=== PATIENT | female | born 1975 | race Caucasian/White ===

== ENCOUNTER 2018-08-20 10:15 | Emergency (ER) | payer OTHER ==
[~2018-08-20 10:15] MED LIST: Iopamidol 370 76% 200 ML VIAL ONE; Sodium Chloride 0.9% 100 ML BAG ONE
[2018-08-20] MEDS ORDERED: Morphine 4 MG/ML VIAL ONE ×2 (11:17→13:32)
[2018-08-20] MEDS ORDERED: Ondansetron PF 4 MG/2 ML Vial ONE (11:18)
[2018-08-20] MEDS ORDERED: Sodium Chloride 0.9% 500 ML ONE (11:18)
[2018-08-20] MEDS ORDERED: Aspirin Chewable 81 MG TAB ONE (11:18)
[2018-08-20] MEDS ORDERED: Promethazine HCl 25 MG/ML VIAL ONE ×2 (11:20→12:17)
--- NOTE | 2018-08-20 12:02 | RAD ---
SINGLE VIEW OF THE CHEST: COMPARISON: 03/28/2018. HISTORY: Chest pain. FINDINGS: A single view of the chest shows a normal-size cardiomediastinal silhouette. The MediPort is unchang ed in position. There is no evidence of consolidation, mass, or pleural effusion. IMPRESSION: No evidence of acute cardiopulmonary disease. POS: DEEH
--- NOTE | 2018-08-20 12:06 | CT ---
EXAM: CTA of the chest HISTORY: Dyspnea for the last few days. History of blood clots COMPARISON: 03/28/2018 TECHNIQUE: Multiple contiguous axial images were obtained a CTA of the chest with contrast per pulmon ravinder embolism protocol. 3-D oblique MIP reformats and direct coronal reformats were performed. FINDINGS: HEART: Normal in size without focal cardiac abnormality. PULMONARY ARTERIES: Normal in caliber without filling defects to suggest pulmonary emboli. MEDIASTINUM: No hilar or mediastinal lymphadenopathy. LUNGS: No focal infiltrates or masses. PLEURAL SPACE: No pleural effusion or pneumothorax. CHEST WALL SOFT TISSUES: There is a right-sided Mediport with its tip in the superior vena cava. VISUALIZED OSSEOUS STRUCTURES: Unremarkable VISUALIZED SUBDIAPHRAGMATIC STRUCTURES: Unremarkable IMPRESSION: No evidence of pulmonary thromboembolism
[2018-08-20 12:07] LABS: #Eosinphils 0.1 thou/uL (0.0-0.7); #Lymphocytes 1.4 thou/uL (1.20-3.40); #Monocytes 0.3 thou/uL (0.11-0.59); #Neutrophils 3.3 thou/uL (1.40-6.50); %Basophils 0.8 % (0.0-1.0); %Eosinophils 1.7 % (0.0-10.0); %Monocytes 5.9 % (0.0-10.0); %Neutrophils 63.5 % (42.0-75.0); Hemoglobin 10.5 g/dL (12.0-16.0); Mean Corpuscular HGB CONC 30.7 g/dL (32.0-36.0); Mean Corpuscular Hemoglobin 28.3 pg (27.0-31.0); Mean Corpuscular Volume 92.2 fL (78.0-98.0); Mean Platelet Volume 7.7 fL (7.4-10.4); Platelet Count 205 thou/uL (130-400); Red Blood Cell (RBC) Count 3.72 mill/uL (4.20-5.40); White Blood Cell (WBC) Count 5.1 thou/uL (4.8-10.8)
[2018-08-20 12:21] LABS: ALT (SGPT) 16 U/L (8-55); AST (SGOT) 11 U/L (5-34); Albumin 3.8 g/dL (3.5-5.0); Alkaline Phosphatase 115 U/L (40-150); Anion Gap 11 mmol/L (10-20); BUN (Urea Nitrogen) 7 mg/dL (7.0-18.7); Bilirubin, Total 0.3 mg/dL (0.2-1.2); CK (CPK) 95 U/L (29-168); Calc. Creatinine Clearance 0 mL/min (70-130); Calcium 8.3 mg/dL (7.8-10.44); Carbon Dioxide 19 mmol/L (22-29); Chloride 112 mmol/L (98-107); Estimated GFR-MDRD 68; Globulin 2.8 g/dL (2.4-3.5); Glucose 88 mg/dL (70-105); Lipase 9 U/L (8-78); Potassium 3.5 mmol/L (3.5-5.1); Protein, Total 6.6 g/dL (6.0-8.3); Sodium 138 mmol/L (136-145)
[2018-08-20] MEDS ORDERED: Lorazepam 2 MG/ML VIAL ONE (12:41)
[2018-08-20] MEDS ORDERED: Sodium Chloride 0.9% 1,000 ML ONE (12:46)
[2018-08-20] MEDS ORDERED: Ondansetron ODT 4 MG TAB ONE (14:19)
== END 2018-08-20 16:35 | disposition home or self-care (01) ==
LOC: MADERS 10:15
DX: I10 Essential (primary) hypertension (principal); R11.2 Nausea with vomiting, unspecified; I25.2 Old myocardial infarction; J45.909 Unspecified asthma, uncomplicated; Z79.891 Long term (current) use of opiate analgesic; Z79.01 Long term (current) use of anticoagulants; Z79.899 Other long term (current) drug therapy; Z86.711 Personal history of pulmonary embolism
CPT/HCPCS: 71045; 71275; 80053; 82550; 83690; 83880; 84484; 85025; 85379; 93005; 94760; 96361; 96374; 96375; 96376; J1642; J2060; J2270; J2405; J2550; J3490; J7050; Q0162

== ENCOUNTER 2018-09-03 11:55 | Emergency (ER) | payer OTHER ==
[~2018-09-03 11:55] MED LIST changes: -Iopamidol 370 76% 200 ML VIAL ONE; +Sodium Chloride 0.9% 1,000 ML BAG ONE; -Sodium Chloride 0.9% 100 ML BAG ONE
[2018-09-03] MEDS ORDERED: Sodium Chloride 0.9% 1,000 ML ONE (12:20)
[2018-09-03] MEDS ORDERED: Ondansetron PF 4 MG/2 ML Vial ONE (12:20)
[2018-09-03] MEDS ORDERED: Pantoprazole 40 MG VIAL ONE (12:20)
[2018-09-03] MEDS ORDERED: Morphine 4 MG/ML VIAL ONE ×2 (12:20→16:49)
[2018-09-03 14:54] LABS: #Lymphocytes 0.7 thou/uL (1.20-3.40); #Monocytes 0.6 thou/uL (0.11-0.59); #Neutrophils 10.1 thou/uL (1.40-6.50); %Basophils 0.4 % (0.0-1.0); %Eosinophils 0.1 % (0.0-10.0); %Lymphocytes 5.7 % (21.0-51.0); %Monocytes 5.5 % (0.0-10.0); %Neutrophils 88.3 % (42.0-75.0); Hemoglobin 13.1 g/dL (12.0-16.0); Mean Corpuscular HGB CONC 30.1 g/dL (32.0-36.0); Mean Corpuscular Hemoglobin 27.5 pg (27.0-31.0); Mean Corpuscular Volume 91.5 fL (78.0-98.0); Mean Platelet Volume 7.3 fL (7.4-10.4); Platelet Count 264 thou/uL (130-400); RBC Distribution Width 14.4 % (11.5-14.5); Red Blood Cell (RBC) Count 4.75 mill/uL (4.20-5.40); White Blood Cell (WBC) Count 11.4 thou/uL (4.8-10.8)
[2018-09-03 14:58] LABS: Chloride 114 mmol/L (98-107); Potassium 3.7 mmol/L (3.5-5.1); Sodium 142 mmol/L (136-145)
[2018-09-03] MEDS ORDERED: Promethazine HCl 25 MG/ML VIAL ONE (15:15)
[2018-09-03 15:20] LABS: BUN (Urea Nitrogen) 12 mg/dL (7.0-18.7); Calc. Creatinine Clearance 0 mL/min (70-130); Calcium 9.2 mg/dL (7.8-10.44); Estimated GFR-MDRD 68; Glucose 121 mg/dL (70-105)
[2018-09-03 15:46] LABS: Bilirubin Small (Negative); Blood, Urine Negative (Negative); Clarity Clear (Clear); Glucose, Urine (Dipstick) Negative (Negative); Leukocyte Negative (Negative); Nitrite Negative (Negative); Protein, Urine (Dipstick) Negative (Neg-Trace); Specific Gravity, Urine 1.025 (1.005-1.030); Urobilinogen 0.2 mg/dL (0.2-1.0); pH, Urine 5.5 (5.0-9.0)
[2018-09-03 15:46] LABS: Carbon Dioxide 13 mmol/L (22-29)
--- NOTE | 2018-09-03 16:41 | CT ---
CT abdomen pelvis. history: Nausea and vomiting. Noncontrast enhanced CT images of the abdomen and pelvis obtained. The lung bases are unremarkable. No evidence of free intraperitoneal air seen. The liver and spleen are unremarkable. The gallbladder is been surgically removed. The pancreas is unremarkable. Adrenal glands and kidneys are unremarkable. No evidence of periaortic lymphadenopathy seen. No dilated loops of small bowel seen. There is diffuse colonic thickening compatible with colitis. Impression: abnormal colonic thickening concerning for colitis.
[2018-09-03] MEDS ORDERED: Ketorolac Tromethamine 30 MG/ML VIAL ONE (16:49)
[2018-09-03 16:55] LABS: ALT (SGPT) 13 U/L (8-55); Albumin 4.3 g/dL (3.5-5.0); Alkaline Phosphatase 141 U/L (40-150); Bilirubin, Total 0.3 mg/dL (0.2-1.2); Globulin 3.2 g/dL (2.4-3.5); Protein, Total 7.5 g/dL (6.0-8.3)
[2018-09-03 17:10] LABS: Anion Gap 19 mmol/L (10-20)
[2018-09-03] MEDS ORDERED: Levofloxacin 500 mg/D5W 100 ml Premix Bag ONE (17:35)
[2018-09-03] MEDS ORDERED: metroNIDAZOLE 500 MG/100 ML BAG ONE (17:35)
== END 2018-09-03 19:40 | disposition short-term general hospital (02) ==
LOC: MADERS 11:55
DX: K52.9 Noninfective gastroenteritis and colitis, unspecified (principal); I25.2 Old myocardial infarction; Z86.711 Personal history of pulmonary embolism; J45.909 Unspecified asthma, uncomplicated; Z79.891 Long term (current) use of opiate analgesic; Z79.899 Other long term (current) drug therapy
CPT/HCPCS: 74176; 80053; 81003; 82274; 83605; 85025; 93005; 96361; 96365; 96367; 96375; 96376; C9113; J1642; J1885; J1956; J2270; J2405; J2550; J7050

== ENCOUNTER 2018-12-21 10:56 | Emergency (ER) | payer OTHER ==
[2018-12-21] MEDS ORDERED: Sodium Chloride 0.9% 1,000 ML ONE ×2 (11:21→14:12)
--- NOTE | 2018-12-21 11:34 | RAD ---
EXAM: Portable chest PROVIDED CLINICAL HISTORY: Chest pain COMPARISON: 08/20/2018 FINDINGS: Cardiac and mediastinal silhouette is within normal limits. No focal consolidation, pleural fluid or pneumothorax evident. Right IJ implanted port is noted, tip of which projects in expected location of cavoatrial junction. IMPRESSION: No evidence for an acute cardiopulmonary process.
[2018-12-21] MEDS ORDERED: Ondansetron PF 4 MG/2 ML Vial ONE (11:42)
[2018-12-21] MEDS ORDERED: diphenhydrAMINE 50 MG/ML VIAL ONE (11:48)
[2018-12-21] MEDS ORDERED: Morphine 10 MG/ML VIAL ONE (11:48)
[2018-12-21 11:54] LABS: #Basophils 0.1 thou/uL (0.0-0.2); #Monocytes 0.8 thou/uL (0.11-0.59); #Neutrophils 12.2 thou/uL (1.40-6.50); %Basophils 0.9 % (0.0-1.0); %Eosinophils 0.2 % (0.0-10.0); %Lymphocytes 7.1 % (21.0-51.0); %Monocytes 5.5 % (0.0-10.0); %Neutrophils 86.4 % (42.0-75.0); Hemoglobin 11.3 g/dL (12.0-16.0); Mean Corpuscular HGB CONC 31.1 g/dL (32.0-36.0); Mean Corpuscular Hemoglobin 26.3 pg (27.0-31.0); Mean Corpuscular Volume 84.6 fL (78.0-98.0); Mean Platelet Volume 7.6 fL (7.4-10.4); Platelet Count 317 thou/uL (130-400); RBC Distribution Width 16.5 % (11.5-14.5); Red Blood Cell (RBC) Count 4.32 mill/uL (4.20-5.40); White Blood Cell (WBC) Count 14.1 thou/uL (4.8-10.8)
[2018-12-21 12:10] LABS: ALT (SGPT) 13 U/L (8-55); AST (SGOT) 12 U/L (5-34); Albumin 4.3 g/dL (3.5-5.0); Alkaline Phosphatase 131 U/L (40-110); Anion Gap 19 mmol/L (10-20); BUN (Urea Nitrogen) 12 mg/dL (7.0-18.7); Bilirubin, Total 0.3 mg/dL (0.2-1.2); Calc. Creatinine Clearance 0 mL/min (70-130); Calcium 9.2 mg/dL (7.8-10.44); Carbon Dioxide 15 mmol/L (22-29); Chloride 113 mmol/L (98-107); Estimated GFR-MDRD 57; Globulin 3.3 g/dL (2.4-3.5); Glucose 138 mg/dL (70-105); Lipase 15 U/L (8-78); Potassium 3.5 mmol/L (3.5-5.1); Protein, Total 7.6 g/dL (6.0-8.3); Sodium 143 mmol/L (136-145)
[2018-12-21 12:54] LABS: Bilirubin Small (Negative); Blood, Urine Negative (Negative); Clarity Clear (Clear); Glucose, Urine (Dipstick) Negative (Negative); Leukocyte Small (Negative); Nitrite Negative (Negative); Protein, Urine (Dipstick) 30 mg/dL (Neg-Trace); RBC/HPF 0-3 HPF (0-3); Urobilinogen 0.2 mg/dL (Less than 2)
[2018-12-21 12:55] LABS: Bacteria/HPF 1+ HPF (None Seen)
[2018-12-21 13:28] LABS: Phencyclidine (PCP) Detected (NotDetected)
[2018-12-21 13:29] LABS: Amphetamine Not Detected (NotDetected); Barbiturates Screen Not Detected (NotDetected); Benzodiazepine Screen Detected (NotDetected); Cocaine Metabolite Screen Not Detected (NotDetected); Medtox Control Line Valid? VALID (VALID); Methadone Not Detected (NotDetected); Methamphetamine Not Detected (NotDetected); Opiate Screen Detected (NotDetected); Oxycodone Screen Not Detected (NotDetected); THC/Cannabinoid Screen Not Detected (NotDetected); Tricyclic Screen Not Detected (NotDetected)
[2018-12-21] MEDS ORDERED: Metoprolol Tartrate 5 MG/5 ML VIAL ONE (14:12)
[2018-12-21] MEDS ORDERED: Promethazine HCl 25 MG/ML VIAL ONE (14:12)
[2018-12-21 14:33] LABS: INR-International Normal Ratio 1.1; PTT 23.7 SEC (22.9-36.1)
[2018-12-21 14:34] LABS: D-Dimer Test 0.54 *mcg/mL (0.27-0.43)
[2018-12-21] MEDS ORDERED: Enoxaparin Sodium 80 MG/0.8 ML SYRINGE ONE (14:56)
[2018-12-21 15:00] LABS: Troponin I Less than 0.010 ng/mL (< 0.028)
== END 2018-12-21 15:31 | disposition short-term general hospital (02) ==
LOC: MADERS 10:56
DX: R00.0 Tachycardia, unspecified (principal); R11.2 Nausea with vomiting, unspecified; J45.909 Unspecified asthma, uncomplicated; Z79.899 Other long term (current) drug therapy; Z86.711 Personal history of pulmonary embolism
CPT/HCPCS: 36415; 71045; 80053; 80306; 81003; 81015; 82274; 83690; 83880; 84443; 84484; 85025; 85379; 85610; 85730; 93005; 94760; 96361; 96372; 96374; 96375; J1200; J1650; J2270; J2405; J2550; J7050

== ENCOUNTER 2020-02-05 16:01 | Emergency (ER) | payer OTHER ==
[~2020-02-05 16:01] MED LIST changes: +Iopamidol 370 76% 125 ML VIAL FS ONE; +Sodium Chloride 0.9% 100 ML BAG ONE
--- NOTE | 2020-02-05 17:14 | RAD ---
CHEST ONE VIEW: 02/05/20 COMPARISON: 12/21/18. HISTORY: Dyspnea. FINDINGS: Normal cardiac silhouette. Pulmonary vessels and hilum are normal. Costophrenic angles are clear. No consolidation or mass. No pneumothorax or acute osseous abnormalities. Interval removal of a left carrol ed Mediport catheter. IMPRESSION: No acute cardiopulmonary process. POS: PPP
[2020-02-05] MEDS ORDERED: Ondansetron PF 4 MG/2 ML Vial ONE (19:11)
[2020-02-05] MEDS ORDERED: Lorazepam 2 MG/ML VIAL ONE (19:11)
--- NOTE | 2020-02-05 19:14 | RAD ---
EXAM: Single view of the chest HISTORY: Central venous catheter placement COMPARISON: 02/05/2020 FINDINGS: Single view of the chest shows a normal sized cardiomediastinal silhouette. A new right IJ central venous catheter seen with its tip in the superior vena cava. No pneumothorax is seen. There is no evidence of consolidation, mass, or pleural effusion. No acute osseous abnormality. IMPRESSION: No evidence of acute cardiopulmonary disease
[2020-02-05 19:21] LABS: #Basophils 0.1 thou/uL (0.0-0.2); #Lymphocytes 1.4 thou/uL (1.20-3.40); #Monocytes 0.7 thou/uL (0.11-0.59); #Neutrophils 7.7 thou/uL (1.40-6.50); %Lymphocytes 14.5 % (21.0-51.0); %Neutrophils 77.5 % (42.0-75.0); Hemoglobin 10.5 g/dL (12.0-16.0); Mean Corpuscular HGB CONC 30.4 g/dL (32.0-36.0); Mean Corpuscular Hemoglobin 26.5 pg (27.0-31.0); Mean Platelet Volume 7.7 fL (7.4-10.4); Platelet Count 388 thou/uL (130-400); RBC Distribution Width 16.1 % (11.5-14.5); Red Blood Cell (RBC) Count 3.98 mill/uL (4.20-5.40); White Blood Cell (WBC) Count 9.9 thou/uL (4.8-10.8)
[2020-02-05 19:36] LABS: ALT (SGPT) 17 U/L (8-55); AST (SGOT) 16 U/L (5-34); Alkaline Phosphatase 120 U/L (40-110); Anion Gap 20 mmol/L (10-20); BUN (Urea Nitrogen) 9 mg/dL (7.0-18.7); Bilirubin, Total Less than 0.2 mg/dL (0.2-1.2); Calc. Creatinine Clearance 0 mL/min (70-130); Calcium 8.9 mg/dL (7.8-10.44); Carbon Dioxide 18 mmol/L (22-29); Chloride 110 mmol/L (98-107); Estimated GFR-MDRD 69; Globulin 2.7 g/dL (2.4-3.5); Glucose 117 mg/dL (70-105); Potassium 3.6 mmol/L (3.5-5.1); Protein, Total 6.7 g/dL (6.0-8.3); Sodium 144 mmol/L (136-145)
[2020-02-05] MEDS ORDERED: Morphine 4 MG/ML VIAL ONE ×2 (19:56→21:11)
[2020-02-05] MEDS ORDERED: Promethazine HCl 25 MG/ML VIAL ONE ×2 (21:14→21:50)
[2020-02-05] MEDS ORDERED: Sodium Chloride 0.9% 1,000 ML ONE ×2 (22:00→23:38)
[2020-02-05 23:49] LABS: Bilirubin Negative (Negative); Blood, Urine Negative (Negative); Clarity Clear (Clear); Glucose, Urine (Dipstick) Negative (Negative); Ketone, Urine 15 mg/dL (Negative); Leukocyte Negative (Negative); Nitrite Negative (Negative); Protein, Urine (Dipstick) Negative (Neg-Trace); Specific Gravity, Urine 1.025 (1.005-1.030); Urobilinogen 0.2 mg/dL (Less than 2)
[2020-02-05 23:57] LABS: THC/Cannabinoid Screen Not Detected (NotDetected)
[2020-02-05 23:58] LABS: Amphetamine Not Detected (NotDetected); Barbiturates Screen Not Detected (NotDetected); Benzodiazepine Screen Not Detected (NotDetected); Cocaine Metabolite Screen Not Detected (NotDetected); Methadone Not Detected (NotDetected); Methamphetamine Not Detected (NotDetected); Opiate Screen Detected (NotDetected); Oxycodone Screen Not Detected (NotDetected); Phencyclidine (PCP) Not Detected (NotDetected); Tricyclic Screen Not Detected (NotDetected)
[2020-02-05 23:59] LABS: Medtox Control Line Valid? VALID (VALID)
[2020-02-06] MEDS ORDERED: Promethazine HCl 25 MG/ML VIAL ONE (01:34)
[2020-02-06] MEDS ORDERED: Metoprolol Tartrate 50 MG TAB ONE (01:34)
[2020-02-06] MEDS ORDERED: Morphine 4 MG/ML VIAL ONE (01:34)
--- NOTE | 2020-02-06 08:00 | CT ---
PRELIMINARY REPORT/[facility]/AFTER HOURS PROCEDURE CTA CHEST WITH INTRAVENOUS CONTRAST: CLINICAL HISTORY: Dyspnea. Elevated heart rate. TECHNIQUE: Axial CTA images of the chest with intravenous contrast. Three-dimensional MIP/volume rendered reform ations were performed. CONTRAST: With 120 mL [id number]. COMPARISON: None provided. FINDINGS PULMONARY ARTERIES: There is no intraluminal filling defect suspicious for PE. AORTA: Heart is enlarged. Aorta is ectatic without aneurysm or dissection. There is a small hiatal he rnia. LUNGS: Diffuse interstitial thickening in the lungs. No confluent airspace opacities. PLEURAL SPACES: No pleural effusion. No pneumothorax. HEART AND MEDIASTINUM: No cardiomegaly. No significant pericardial effusion. LYMPH NODES: No lymphadenopathy. BONES: No focal osseous abnormality or acute fracture. CHEST WALL AND UPPER ABDOMEN: Stomach is distended with an air-fluid level. Indeterminate 18 mm low- attenuation focus in right lobe of the liver. No evidence for proximal small bowel distention. IMPRESSION: No evidence for acute pulmonary embolism. Findings suggestive of interstitial pulmonary edema. Distended stomach with air-fluid level suggesting gastroparesis versus recent ingestion. ELECTRONICALLY SIGNED BY: Maureen Dyson MD Feb 06, 2020 1:45:41 AM [employer] This report is intended for review by the ordering physician only, in accordance of law. If you recei ve this report in error, please call [facility] at [phone]. FINAL REPORT I agree with the preliminary report provided. No definite central or segmental pulmonary embolus is evident. There is a small hypodensity within th e posterior right hepatic lobe seen on the prior CT examination, likely reflective of a small hemangi magdy. There is some interstitial prominence, much of which is related to subsegmental volume loss and some respiratory motion artifact. CODE QA POS: ROBBIE
== END 2020-02-06 04:36 | disposition short-term general hospital (02) ==
LOC: MADERS 16:01
DX: R00.0 Tachycardia, unspecified (principal); R11.2 Nausea with vomiting, unspecified; R00.2 Palpitations; R53.1 Weakness; I25.2 Old myocardial infarction; J45.909 Unspecified asthma, uncomplicated; Z79.01 Long term (current) use of anticoagulants; Z86.711 Personal history of pulmonary embolism; Z79.899 Other long term (current) drug therapy
CPT/HCPCS: 36556; 71045; 71275; 80053; 80306; 81003; 83880; 84484; 85025; 93005; 96374; 96375; 96376; J2060; J2270; J2405; J2550; J3490; J7050; Q9967

== ENCOUNTER 2020-05-15 07:23 | Emergency (ER) | payer OTHER ==
[2020-05-15] MEDS ORDERED: Ondansetron PF 4 MG/2 ML Vial ONE (08:08)
[2020-05-15] MEDS ORDERED: Sodium Chloride 0.9% 1,000 ML ONE ×2 (08:08→09:19)
--- NOTE | 2020-05-15 08:21 | RAD ---
XR Chest 1 View Portable HISTORY: Dyspnea COMPARISON: 02/05/2020 FINDINGS: The heart size is normal. There has been interval removal of the right-sided internal jugul ar central venous catheter. The lungs are well expanded without focal areas of consolidation, pneumothorax or pleural effusions. IMPRESSION: No radiographic evidence of acute cardiopulmonary process.
[2020-05-15] MEDS ORDERED: Lorazepam 2 MG/ML VIAL ONE (08:33)
[2020-05-15 08:55] LABS: #Basophils 0.1 thou/uL (0.0-0.2); #Lymphocytes 1.1 thou/uL (1.20-3.40); #Monocytes 0.6 thou/uL (0.11-0.59); #Neutrophils 9.3 thou/uL (1.40-6.50); %Basophils 0.6 % (0.0-1.0); %Eosinophils 0.2 % (0.0-10.0); %Neutrophils 83.2 % (42.0-75.0); Hemoglobin 9.7 g/dL (12.0-16.0); Mean Corpuscular Hemoglobin 24.7 pg (27.0-31.0); Mean Corpuscular Volume 82.3 fL (78.0-98.0); Mean Platelet Volume 7.9 fL (7.4-10.4); Platelet Count 295 thou/uL (130-400); RBC Distribution Width 16.6 % (11.5-14.5); Red Blood Cell (RBC) Count 3.99 mill/uL (4.20-5.40); White Blood Cell (WBC) Count 10.7 thou/uL (4.8-10.8)
[2020-05-15 08:56] LABS: Anisocytosis SLIGHT = 6-15 cells (100X) (0-5/hpf)
[2020-05-15 08:57] LABS: Platelet Morphology Comment Appears Adequate
[2020-05-15 09:03] LABS: ALT (SGPT) 25 U/L (8-55); AST (SGOT) 26 U/L (5-34); Albumin 3.9 g/dL (3.5-5.0); Alkaline Phosphatase 115 U/L (40-110); Anion Gap 18 mmol/L (10-20); BUN (Urea Nitrogen) 19 mg/dL (7.0-18.7); Bilirubin, Total 0.3 mg/dL (0.2-1.2); CK (CPK) 64 U/L (29-168); Calc. Creatinine Clearance 0 mL/min (70-130); Calcium 8.8 mg/dL (7.8-10.44); Carbon Dioxide 20 mmol/L (22-29); Chloride 110 mmol/L (98-107); Glucose 127 mg/dL (70-105); Potassium 3.5 mmol/L (3.5-5.1); Protein, Total 6.9 g/dL (6.0-8.3); Sodium 144 mmol/L (136-145)
[2020-05-15 09:04] LABS: CKMB 0.8 ng/mL (0-6.6)
[2020-05-15] MEDS ORDERED: Aspirin Chewable 81 MG TAB ONE ×2 (09:18→09:20)
[2020-05-15] MEDS ORDERED: Nitroglycerin 0.4 MG TAB 1 EACH ONE (09:18)
[2020-05-15] MEDS ORDERED: Morphine 4 MG/ML VIAL ONE (09:19)
[2020-05-15 11:26] LABS: Lactic Acid 2.1 mmol/L (0.5-2.2)
[2020-05-15] MEDS ORDERED: HYDROmorphone 0.5 MG/0.5 ML SYRINGE ONE (11:56)
[2020-05-15] MEDS ORDERED: Promethazine HCl 25 MG/ML VIAL ONE (11:56)
[2020-05-15] MEDS ORDERED: Sodium Chloride 0.9% 500 ML ONE (11:57)
[2020-05-15] MEDS ORDERED: Iopamidol 370 76% 125 ML VIAL FS ONE (12:22)
--- NOTE | 2020-05-15 13:49 | CT ---
Exam: CT angiogram of the chest HISTORY: Shortness of breath. History of pulmonary emboli. COMPARISON: 02/06/2020 TECHNIQUE: CT angiogram of the chest is performed in the axial plane. Three-dimensional reformatted i mages are submitted for interpretation FINDINGS: Mediastinum: No mass, lymphadenopathy or hematoma. HEART: Normal size. No significant pericardial fluid. Aorta: No aneurysm or dissection Upper solid abdominal viscera: Stable cyst in the right hepatic lobe. Gallbladder is surgically absen t Trachea and central bronchi: Patent Pleural spaces: No effusion Lung parenchyma: Stable scarring and atelectasis involving the left and right lower lobe Pneumothorax: None Osseous structures: No lytic or blastic lesions Pulmonary arteries: Adequate contrast opacification pulmonary arterial system to the level of segment al arteries. No filling defect to suggest pulmonary embolism IMPRESSION: 1. Adequate contrast desiccation pulmonary artery consistent the level of segmental arteries. No fill ing defect to suggest thromboembolism
[2020-05-15 19:17] LABS: Bilirubin Negative (Negative); Blood, Urine Trace (Negative); Clarity Slightly Cloudy (Clear); Glucose, Urine (Dipstick) Negative (Negative); Ketone, Urine Trace mg/dL (Negative); Leukocyte Trace (Negative); Nitrite Positive (Negative); Protein, Urine (Dipstick) Negative (Neg-Trace); Urobilinogen 0.2 mg/dL (Less than 2)
[2020-05-15 19:30] LABS: Cocaine Metabolite Screen Not Detected (NotDetected); Methamphetamine Not Detected (NotDetected); Opiate Screen Detected (NotDetected); Phencyclidine (PCP) Not Detected (NotDetected); THC/Cannabinoid Screen Not Detected (NotDetected)
[2020-05-15 19:31] LABS: Amphetamine Not Detected (NotDetected); Barbiturates Screen Not Detected (NotDetected); Benzodiazepine Screen Detected (NotDetected); Medtox Control Line Valid? VALID (VALID); Methadone Not Detected (NotDetected); Oxycodone Screen Not Detected (NotDetected); Tricyclic Screen Not Detected (NotDetected)
[2020-05-15 19:39] LABS: RBC/HPF 0-3 HPF (0-3)
[2020-05-15 19:40] LABS: Bacteria/HPF 3+ HPF (None Seen)
== END 2020-05-16 00:54 | disposition home or self-care (01) ==
LOC: MADERS 07:23
DX: R00.0 Tachycardia, unspecified (principal); G89.4 Chronic pain syndrome; R11.2 Nausea with vomiting, unspecified; I25.2 Old myocardial infarction; J45.909 Unspecified asthma, uncomplicated; G90.50 Complex regional pain syndrome I, unspecified; Z86.711 Personal history of pulmonary embolism; Z79.01 Long term (current) use of anticoagulants; Z79.899 Other long term (current) drug therapy
CPT/HCPCS: 71045; 71275; 80053; 80306; 81003; 81015; 82550; 82553; 83605; 84484; 85025; 93005; 94760; 96365; 96374; 96375; J1170; J2060; J2270; J2405; J2550; J7030; J7050; Q9967

== ENCOUNTER 2021-11-22 07:54 | Emergency (ER) | payer OTHER ==
[~2021-11-22 07:54] MED LIST changes: -Sodium Chloride 0.9% 1,000 ML BAG ONE
[2021-11-22] MEDS ORDERED: methylPREDNISolone Sod Succ/PF 125 MG/2 ML VIAL ONE (08:45)
[2021-11-22] MEDS ORDERED: Albuterol Sulfate 2.5 mg/3 ml Neb ONE (08:45)
[2021-11-22] MEDS ORDERED: Famotidine/PF 20 mg/2ml Vial ONE (08:45)
[2021-11-22] MEDS ORDERED: Lactated Ringer's 1,000 ML ONE (08:45)
[2021-11-22] MEDS ORDERED: Morphine 4 MG/ML VIAL ONE ×3 (08:48→15:02)
[2021-11-22] MEDS ORDERED: Prochlorperazine 10 MG/2 ML VIAL ONE ×2 (08:49→14:07)
[2021-11-22] MEDS ORDERED: diphenhydrAMINE 50 MG/ML VIAL ONE (09:33)
[2021-11-22 09:39] LABS: #Eosinphils 0.1 thou/uL (0.0-0.7); #Lymphocytes 1.6 thou/uL (1.20-3.40); #Monocytes 0.6 thou/uL (0.11-0.59); #Neutrophils 5.8 thou/uL (1.40-6.50); %Basophils 0.4 % (0.0-1.0); %Eosinophils 0.9 % (0.0-10.0); %Lymphocytes 19.9 % (21.0-51.0); %Monocytes 7.7 % (0.0-10.0); %Neutrophils 71.1 % (42.0-75.0); Hemoglobin 10.6 g/dL (12.0-16.0); INR-International Normal Ratio 0.9; Mean Corpuscular HGB CONC 29.8 g/dL (32.0-36.0); Mean Corpuscular Hemoglobin 28.5 pg (27.0-31.0); Mean Corpuscular Volume 95.4 fL (78.0-98.0); Mean Platelet Volume 9.4 fL (7.4-10.4); Platelet Count 265 thou/uL (130-400); Prothrombin Time 12.2 sec (12.0-14.7); RBC Distribution Width 14.3 % (11.5-14.5); Red Blood Cell (RBC) Count 3.71 mill/uL (4.20-5.40); White Blood Cell (WBC) Count 8.2 thou/uL (4.8-10.8)
[2021-11-22 09:48] LABS: ALT (SGPT) 29 U/L (8-55); AST (SGOT) 17 U/L (5-34); Albumin 3.9 g/dL (3.5-5.0); Alkaline Phosphatase 115 U/L (40-110); Anion Gap 15 mmol/L (10-20); BUN (Urea Nitrogen) 12 mg/dL (7.0-18.7); Bilirubin, Total 0.2 mg/dL (0.2-1.2); Calc. Creatinine Clearance 0 mL/min (70-130); Carbon Dioxide 20 mmol/L (22-29); Chloride 116 mmol/L (98-107); Estimated GFR 61; Globulin 2.5 g/dL (2.4-3.5); Glucose 128 mg/dL (70-105); Lipase 10 U/L (8-78); Magnesium 2.1 mg/dL (1.6-2.6); Potassium 4.3 mmol/L (3.5-5.1); Protein, Total 6.4 g/dL (6.0-8.3); Sodium 147 mmol/L (136-145)
[2021-11-22 09:56] LABS: PTT 22.6 sec (22.9-36.1)
[2021-11-22 09:59] LABS: Anisocytosis SLIGHT = 6-15 cells (100X) (0-5/hpf); Platelet Morphology Comment Appears Adequate
[2021-11-22] MEDS ORDERED: Aspirin Chewable 81 MG TAB ONE (10:53)
[2021-11-22] MEDS ORDERED: Acetaminophen 500 MG TAB ONE (10:53)
[2021-11-22 11:11] LABS: Bilirubin Negative (Negative); Blood, Urine Negative (Negative); Clarity Slightly Cloudy (Clear); Glucose, Urine (Dipstick) Negative (Negative); Ketone, Urine Negative (Negative); Leukocyte Small (Negative); Nitrite Negative (Negative); Protein, Urine (Dipstick) Negative (Neg-Trace); Urobilinogen 0.2 mg/dL (Less than 2); pH, Urine 5.5 (5.0-9.0)
[2021-11-22 11:14] LABS: Pregnancy Test - Urine (BHCG) Negative (Negative); Pregu Control Background? CLEAR/WHITE (CLR/WHITE); Pregu Control Bar Appear? YES (CONTROL BAR)
[2021-11-22 11:18] LABS: Bacteria/HPF 4+ HPF (None Seen); RBC/HPF 0-3 HPF (0-3); Squamous Epithelial 0-3 HPF (0-3); WBC/HPF 21-50 HPF (0-3)
[2021-11-22] MEDS ORDERED: Piperacillin/Tazobactam 4.5 GM VIAL ONE (11:35)
[2021-11-22] MEDS ORDERED: Sodium Chloride 0.9% 100 ML ONE (11:35)
[2021-11-22] MEDS ORDERED: Enoxaparin Sodium 80 MG/0.8 ML SYRINGE ONE (11:36)
[2021-11-22] MEDS ORDERED: levETIRAcetam 500 MG/5 ML VIAL ONE (11:36)
== END 2021-11-22 15:20 | disposition short-term general hospital (02) ==
LOC: MADERS 07:54
DX: U07.1 COVID-19 (principal); N39.0 Urinary tract infection, site not specified; E86.0 Dehydration; I26.99 Other pulmonary embolism without acute cor pulmonale; R11.2 Nausea with vomiting, unspecified; R07.89 Other chest pain; I25.2 Old myocardial infarction; J45.909 Unspecified asthma, uncomplicated; G90.50 Complex regional pain syndrome I, unspecified; Z79.01 Long term (current) use of anticoagulants; Z79.899 Other long term (current) drug therapy
CPT/HCPCS: 71046; 71275; 80053; 81003; 81015; 81025; 83605; 83690; 83735; 83880; 84484; 85025; 85610; 85730; 86140; 87040; 87077; 87086; 87149; 87186; 93005; 94760; 96361; 96365; 96368; 96372; 96375; 96376; J0780; J1200; J1650; J1953; J2270; J2543; J2930; J3490; J7120; J7611; J7620; Q9967; S0028

== ENCOUNTER 2021-12-17 06:04 | Emergency (ER) | payer OTHER ==
[2021-12-17 07:31] LABS: #Basophils 0.1 thou/uL (0.0-0.2); #Eosinphils 0.1 thou/uL (0.0-0.7); #Lymphocytes 1.5 thou/uL (1.20-3.40); #Monocytes 0.4 thou/uL (0.11-0.59); #Neutrophils 4.9 thou/uL (1.40-6.50); %Basophils 0.8 % (0.0-1.0); %Eosinophils 0.9 % (0.0-10.0); %Lymphocytes 22.1 % (21.0-51.0); %Neutrophils 71.3 % (42.0-75.0); Mean Corpuscular HGB CONC 30.2 g/dL (32.0-36.0); Mean Corpuscular Hemoglobin 27.9 pg (27.0-31.0); Mean Corpuscular Volume 92.3 fL (78.0-98.0); Mean Platelet Volume 8.9 fL (7.4-10.4); Platelet Count 261 thou/uL (130-400); RBC Distribution Width 14.9 % (11.5-14.5); Red Blood Cell (RBC) Count 3.94 mill/uL (4.20-5.40); White Blood Cell (WBC) Count 6.9 thou/uL (4.8-10.8)
[2021-12-17] MEDS ORDERED: diphenhydrAMINE 50 MG/ML VIAL ONE ×2 (07:36→10:13)
[2021-12-17] MEDS ORDERED: Prochlorperazine 10 MG/2 ML VIAL ONE ×2 (07:36→15:18)
[2021-12-17 07:46] LABS: ALT (SGPT) 104 U/L (8-55); AST (SGOT) 40 U/L (5-34); Albumin 3.8 g/dL (3.5-5.0); Alkaline Phosphatase 133 U/L (40-110); Anion Gap 15 mmol/L (10-20); BUN (Urea Nitrogen) 10 mg/dL (7.0-18.7); Bilirubin, Total 0.2 mg/dL (0.2-1.2); Calc. Creatinine Clearance 0 mL/min (70-130); Calcium 9.1 mg/dL (7.8-10.44); Carbon Dioxide 21 mmol/L (22-29); Chloride 113 mmol/L (98-107); Estimated GFR 62; Globulin 3.1 g/dL (2.4-3.5); Glucose 144 mg/dL (70-105); Lipase 16 U/L (8-78); Potassium 3.2 mmol/L (3.5-5.1); Protein, Total 6.9 g/dL (6.0-8.3); Sodium 146 mmol/L (136-145)
[2021-12-17] MEDS ORDERED: Ondansetron PF 4 MG/2 ML Vial ONE (08:52)
[2021-12-17] MEDS ORDERED: Morphine 4 MG/ML VIAL ONE ×3 (08:52→15:18)
[2021-12-17] MEDS ORDERED: Sodium Chloride 0.9% 1,000 ML ONE ×2 (08:53)
[2021-12-17] MEDS ORDERED: Potassium Chloride 10 MEQ TAB ONE (09:03)
[2021-12-17] MEDS ORDERED: Sodium Chloride 0.9% 100 ML BAG ONE (09:29)
[2021-12-17] MEDS ORDERED: Iopamidol 370 76% 125 ML VIAL FS ONE (10:06)
[2021-12-17 10:49] LABS: Bilirubin Negative (Negative); Blood, Urine Negative (Negative); Clarity Clear (Clear); Glucose, Urine (Dipstick) Negative (Negative); Ketone, Urine Negative (Negative); Leukocyte Trace (Negative); Nitrite Negative (Negative); Protein, Urine (Dipstick) Negative (Neg-Trace); Urobilinogen 0.2 mg/dL (Less than 2)
[2021-12-17] MEDS ORDERED: Lorazepam 2 MG/ML VIAL ONE ×2 (10:52→14:32)
[2021-12-17 10:57] LABS: Amphetamine Not Detected (NotDetected); Cocaine Metabolite Screen Not Detected (NotDetected); Methamphetamine Not Detected (NotDetected); Opiate Screen Detected (NotDetected); Phencyclidine (PCP) Not Detected (NotDetected); THC/Cannabinoid Screen Not Detected (NotDetected)
[2021-12-17 10:58] LABS: Barbiturates Screen Not Detected (NotDetected); Benzodiazepine Screen Detected (NotDetected); Medtox Control Line Valid? VALID (VALID); Methadone Not Detected (NotDetected); Oxycodone Screen Not Detected (NotDetected); Tricyclic Screen Not Detected (NotDetected)
[2021-12-17 10:59] LABS: Bacteria/HPF None Seen HPF (None Seen); RBC/HPF None Seen HPF (0-3); Squamous Epithelial 0-3 HPF (0-3); WBC/HPF 0-3 HPF (0-3)
[2021-12-17] MEDS ORDERED: Metoprolol Tartrate 5 MG/5 ML VIAL ONE ×2 (12:09→17:38)
[2021-12-17] MEDS ORDERED: Sodium Chloride 0.9% 500 ML ONE (15:18)
[2021-12-17 15:39] LABS: CRP (Inflammatory) Less than 0.50 mg/dL (= or < 0.5); Magnesium 1.7 mg/dL (1.6-2.6)
== END 2021-12-17 18:11 | disposition short-term general hospital (02) ==
LOC: MADERS 06:04
DX: G90.50 Complex regional pain syndrome I, unspecified (principal); R11.2 Nausea with vomiting, unspecified; I25.2 Old myocardial infarction; Z86.711 Personal history of pulmonary embolism; Z79.899 Other long term (current) drug therapy; Z79.01 Long term (current) use of anticoagulants
CPT/HCPCS: 36415; 71046; 71275; 74175; 80053; 80306; 81003; 81015; 83690; 83735; 83880; 84484; 85025; 86140; 93005; 96361; 96365; 96366; 96375; 96376; J0780; J1200; J2060; J2270; J2405; J7030; J7050; J7620; Q9967

== ENCOUNTER 2022-01-20 02:04 | Emergency (ER) | payer OTHER ==
[2022-01-20 03:00] LABS: #Eosinphils 0.1 thou/uL (0.0-0.7); #Lymphocytes 1.2 thou/uL (1.20-3.40); #Monocytes 0.5 thou/uL (0.11-0.59); #Neutrophils 5.5 thou/uL (1.40-6.50); %Basophils 0.6 % (0.0-1.0); %Eosinophils 0.7 % (0.0-10.0); %Lymphocytes 16.2 % (21.0-51.0); %Monocytes 6.9 % (0.0-10.0); %Neutrophils 75.7 % (42.0-75.0); Hemoglobin 12.1 g/dL (12.0-16.0); Mean Corpuscular HGB CONC 31.2 g/dL (32.0-36.0); Mean Corpuscular Hemoglobin 29.4 pg (27.0-31.0); Mean Corpuscular Volume 94.2 fl (78.0-98.0); Platelet Count 315 thou/uL (130-400); RBC Distribution Width 14.8 % (11.5-14.5); Red Blood Cell (RBC) Count 4.12 mill/uL (4.20-5.40); White Blood Cell (WBC) Count 7.3 thou/uL (4.8-10.8)
[2022-01-20] MEDS ORDERED: Sodium Chloride 0.9% 1,000 ML ONE (03:05)
[2022-01-20] MEDS ORDERED: HYDROmorphone 0.5 MG/0.5 ML SYRINGE ONE ×2 (03:06→05:40)
[2022-01-20] MEDS ORDERED: Promethazine HCl 25 MG/ML VIAL ONE (03:06)
[2022-01-20] MEDS ORDERED: Sodium Chloride 0.9% 100 ML ONE ×2 (03:08→05:41)
[2022-01-20 03:21] LABS: ALT (SGPT) 45 U/L (8-55); AST (SGOT) 22 U/L (5-34); Alkaline Phosphatase 122 U/L (40-110); Anion Gap 14 mmol/L (10-20); BUN (Urea Nitrogen) 9 mg/dL (7.0-18.7); Bilirubin, Total 0.2 mg/dL (0.2-1.2); CK (CPK) 37 U/L (29-168); Calc. Creatinine Clearance 0 mL/min (70-130); Calcium 9.3 mg/dL (7.8-10.44); Carbon Dioxide 20 mmol/L (22-29); Chloride 113 mmol/L (98-107); Estimated GFR 59; Globulin 2.9 g/dL (2.4-3.5); Glucose 175 mg/dL (70-105); Lipase 17 U/L (8-78); Protein, Total 6.9 g/dL (6.0-8.3); Sodium 144 mmol/L (136-145)
[2022-01-20 03:47] LABS: Potassium 2.9 mmol/L (3.5-5.1)
[2022-01-20] MEDS ORDERED: Potassium Chloride 20 MEQ TAB ONE (03:54)
[2022-01-20] MEDS ORDERED: NS 0.9% w/ 20 MEQ KCL 1,000 ML ONE (03:55)
[2022-01-20 07:00] LABS: Potassium 3.9 mmol/L (3.5-5.1)
[2022-01-20] MEDS ORDERED: Metoprolol Tartrate 50 MG TAB ONE (07:26)
[2022-01-20] MEDS ORDERED: Ondansetron PF 4 MG/2 ML Vial ONE (08:59)
[2022-01-20] MEDS ORDERED: Lorazepam 2 MG/ML VIAL ONE (09:36)
[2022-01-20 10:54] LABS: Bilirubin Negative (Negative); Blood, Urine Trace (Negative); Clarity Slightly Cloudy (Clear); Glucose, Urine (Dipstick) Negative (Negative); Ketone, Urine Negative (Negative); Leukocyte Trace (Negative); Nitrite Negative (Negative); Protein, Urine (Dipstick) Negative (Neg-Trace); Specific Gravity, Urine 1.025 (1.005-1.030); Urobilinogen 0.2 mg/dL (Less than 2)
[2022-01-20 10:58] LABS: Pregnancy Test - Urine (BHCG) Negative (Negative); Pregu Control Background? CLEAR/WHITE (CLR/WHITE); Pregu Control Bar Appear? YES (CONTROL BAR); Specific Gravity 1.025 (1.002-1.036)
[2022-01-20 11:02] LABS: RBC/HPF 0-3 HPF (0-3)
[2022-01-20 11:03] LABS: Bacteria/HPF 4+ HPF (None Seen); Squamous Epithelial 0-3 HPF (0-3)
[2022-01-20] MEDS ORDERED: Ketorolac Tromethamine 30 MG/ML VIAL ONE (12:00)
[2022-01-20] MEDS ORDERED: Topiramate 25 MG TAB PO SCH ×2 (12:00→13:30)
[2022-01-20] MEDS ORDERED: Topiramate 25 MG TAB ONE (12:00)
[2022-01-20] MEDS ORDERED: Sodium Chloride 0.9% 1,000 ML BAG ONE (12:00)
[2022-01-20 12:50] LABS: SARS-CoV-2 NAA Rapid Test DETECTED (NotDetected)
== END 2022-01-20 14:44 | disposition short-term general hospital (02) ==
LOC: MADERS 02:04 → MADMS 09:12 → UNDOADMOB 09:12 → MADERS 14:44
DX: U07.1 COVID-19 (principal); E86.0 Dehydration; G40.409 Other generalized epilepsy and epileptic syndromes, not intractable, without status epilepticus; E87.6 Hypokalemia; N39.0 Urinary tract infection, site not specified; R11.2 Nausea with vomiting, unspecified; I25.2 Old myocardial infarction; J45.909 Unspecified asthma, uncomplicated; G90.50 Complex regional pain syndrome I, unspecified; Z86.711 Personal history of pulmonary embolism; Z79.01 Long term (current) use of anticoagulants; Z79.899 Other long term (current) drug therapy
CPT/HCPCS: 70450; 71045; 80053; 81003; 81015; 81025; 82550; 83605; 83690; 85025; 93005; 96365; 96366; 96367; 96375; J1170; J1885; J1956; J2060; J2405; J2550; J3480; J7050; U0002

== ENCOUNTER 2022-03-27 10:38 | Emergency (ER) | payer OTHER ==
[2022-03-27] MEDS ORDERED: Morphine 4 MG/ML VIAL ONE ×3 (11:55→19:19)
[2022-03-27] MEDS ORDERED: Lactated Ringer's 1,000 ML ONE ×3 (11:56→17:33)
[2022-03-27] MEDS ORDERED: Dicyclomine 20 MG/2 ML VIAL ONE (11:56)
[2022-03-27] MEDS ORDERED: Orphenadrine Citrate 60 MG/2 ML VIAL ONE (11:56)
[2022-03-27] MEDS ORDERED: Prochlorperazine 10 MG/2 ML VIAL ONE ×2 (11:56→19:19)
[2022-03-27 13:01] LABS: #Monocytes 0.4 thou/uL (0.11-0.59); #Neutrophils 7.7 thou/uL (1.40-6.50); %Basophils 0.5 % (0.0-1.0); %Eosinophils 0.1 % (0.0-10.0); %Lymphocytes 10.6 % (21.0-51.0); %Monocytes 4.4 % (0.0-10.0); %Neutrophils 84.4 % (42.0-75.0); Mean Corpuscular HGB CONC 32.3 g/dL (32.0-36.0); Mean Corpuscular Hemoglobin 30.8 pg (27.0-31.0); Mean Corpuscular Volume 95.3 fl (78.0-98.0); Mean Platelet Volume 7.9 fL (7.4-10.4); Platelet Count 310 10x3/uL (130-400); RBC Distribution Width 15.2 % (11.5-14.5); Red Blood Cell (RBC) Count 4.54 mill/uL (4.20-5.40); White Blood Cell (WBC) Count 9.1 10x3/uL (4.8-10.8)
[2022-03-27 13:24] LABS: ALT (SGPT) 33 U/L (8-55); AST (SGOT) 26 U/L (5-34); Albumin 4.1 g/dL (3.5-5.0); Alkaline Phosphatase 135 U/L (40-110); Anion Gap 18 mmol/L (10-20); BUN (Urea Nitrogen) 11 mg/dL (7.0-18.7); Bilirubin, Total 0.2 mg/dL (0.2-1.2); CK (CPK) 47 U/L (29-168); Calc. Creatinine Clearance 0 mL/min (70-130); Calcium 9.7 mg/dL (7.8-10.44); Carbon Dioxide 19 mmol/L (22-29); Chloride 111 mmol/L (98-107); Estimated GFR 71; Globulin 2.7 g/dL (2.4-3.5); Glucose 153 mg/dL (70-105); Lipase 11 U/L (8-78); Magnesium 1.7 mg/dL (1.6-2.6); Potassium 3.9 mmol/L (3.5-5.1); Protein, Total 6.8 g/dL (6.0-8.3); Sodium 144 mmol/L (136-145)
[2022-03-27] MEDS ORDERED: Metoprolol Tartrate 50 MG TAB ONE (14:47)
[2022-03-27] MEDS ORDERED: Promethazine HCl 25 MG/ML VIAL ONE (15:04)
[2022-03-27] MEDS ORDERED: Sodium Chloride 0.9% 100 ML ONE (15:04)
[2022-03-27] MEDS ORDERED: Metoprolol Tartrate 5 MG/5 ML VIAL ONE ×2 (15:04→20:10)
[2022-03-27 16:34] LABS: Lactic Acid 2.7 mmol/L (0.5-2.2)
[2022-03-27 17:01] LABS: Bilirubin Negative (Negative); Blood, Urine Negative (Negative); Glucose, Urine (Dipstick) 100 mg/dL (Negative); Ketone, Urine Negative (Negative); Leukocyte Negative (Negative); Nitrite Negative (Negative); Protein, Urine (Dipstick) Negative (Neg-Trace); Urobilinogen 0.2 mg/dL (Less than 2); pH, Urine 5.5 (5.0-9.0)
[2022-03-27 17:05] LABS: Clarity Hazy (Clear)
[2022-03-27 17:30] LABS: SARS-CoV-2 NAA Rapid Test Not Detected (NotDetected)
[2022-03-27] MEDS ORDERED: Pantoprazole 40 MG VIAL ONE (17:33)
[2022-03-27] MEDS ORDERED: Lorazepam 2 MG/ML VIAL ONE ×2 (17:33→19:19)
[2022-03-27 20:32] LABS: Amphetamine Not Detected (NotDetected); Barbiturates Screen Not Detected (NotDetected); Benzodiazepine Screen Detected (NotDetected); Cocaine Metabolite Screen Not Detected (NotDetected); Medtox Control Line Valid? VALID (VALID); Methadone Not Detected (NotDetected); Methamphetamine Not Detected (NotDetected); Opiate Screen Detected (NotDetected); Oxycodone Screen Not Detected (NotDetected); Phencyclidine (PCP) Not Detected (NotDetected); THC/Cannabinoid Screen Not Detected (NotDetected); Tricyclic Screen Not Detected (NotDetected)
[2022-03-28] MEDS ORDERED: Prochlorperazine 10 MG/2 ML VIAL ONE (01:50)
[2022-03-28] MEDS ORDERED: Morphine 4 MG/ML VIAL ONE (01:50)
[2022-03-28] MEDS ORDERED: Metoprolol Tartrate 5 MG/5 ML VIAL ONE (04:22)
[2022-03-28 07:06] LABS: #Lymphocytes 1.1 thou/uL (1.20-3.40); #Monocytes 0.9 thou/uL (0.11-0.59); #Neutrophils 7.4 thou/uL (1.40-6.50); %Basophils 0.4 % (0.0-1.0); %Lymphocytes 11.6 % (21.0-51.0); %Monocytes 9.2 % (0.0-10.0); %Neutrophils 78.7 % (42.0-75.0); Hemoglobin 12.4 g/dL (12.0-16.0); Mean Corpuscular HGB CONC 32.2 g/dL (32.0-36.0); Mean Corpuscular Hemoglobin 30.8 pg (27.0-31.0); Mean Corpuscular Volume 95.7 fl (78.0-98.0); Mean Platelet Volume 7.8 fL (7.4-10.4); Platelet Count 299 10x3/uL (130-400); RBC Distribution Width 15.1 % (11.5-14.5); Red Blood Cell (RBC) Count 4.02 mill/uL (4.20-5.40); White Blood Cell (WBC) Count 9.4 10x3/uL (4.8-10.8)
[2022-03-28 07:24] LABS: ALT (SGPT) 24 U/L (8-55); AST (SGOT) 17 U/L (5-34); Albumin 3.7 g/dL (3.5-5.0); Alkaline Phosphatase 116 U/L (40-110); Anion Gap 18 mmol/L (10-20); BUN (Urea Nitrogen) 7 mg/dL (7.0-18.7); Bilirubin, Total 0.3 mg/dL (0.2-1.2); Calc. Creatinine Clearance 0 mL/min (70-130); Calcium 9.4 mg/dL (7.8-10.44); Carbon Dioxide 24 mmol/L (22-29); Chloride 109 mmol/L (98-107); Estimated GFR 92; Globulin 2.7 g/dL (2.4-3.5); Glucose 148 mg/dL (70-105); Magnesium 1.6 mg/dL (1.6-2.6); Potassium 3.7 mmol/L (3.5-5.1); Protein, Total 6.4 g/dL (6.0-8.3); Sodium 147 mmol/L (136-145)
[2022-03-28] MEDS ORDERED: Metoprolol Tartrate 50 MG TAB ONE (08:01)
[2022-03-28] MEDS ORDERED: Rivaroxaban 10 MG TAB PO SCH (08:15)
[2022-03-28] MEDS ORDERED: Gabapentin 300 MG CAP PO SCH (08:15)
[2022-03-28] MEDS ORDERED: Topiramate 25 MG TAB PO SCH (08:15)
[2022-03-28] MEDS ORDERED: HYDROcodone/Acetaminophen 10/325 mg Tablet ONE (10:45)
== END 2022-03-28 17:20 | disposition short-term general hospital (02) ==
LOC: MADERS 10:38
DX: R11.2 Nausea with vomiting, unspecified (principal); R10.9 Unspecified abdominal pain; E87.20 Acidosis, unspecified; R00.0 Tachycardia, unspecified; J45.909 Unspecified asthma, uncomplicated; R07.89 Other chest pain; Z20.822 Contact with and (suspected) exposure to COVID-19; Z79.899 Other long term (current) drug therapy
CPT/HCPCS: 71046; 80053; 80306; 81003; 82550; 83605; 83690; 83735; 84443; 84484; 85025; 85379; 87040; 87804; 93005; 94760; 96361; 96372; 96374; 96375; 96376; C9113; J0780; J2060; J2270; J2360; J2550; J7120; U0002

== ENCOUNTER 2022-06-03 16:59 | Emergency (ER) | payer OTHER ==
[2022-06-03] MEDS ORDERED: Lorazepam 2 MG/ML VIAL ONE (17:00)
[2022-06-03 18:01] LABS: ALT (SGPT) 21 U/L (8-55); AST (SGOT) 18 U/L (5-34); Albumin 3.9 g/dL (3.5-5.0); Alkaline Phosphatase 121 U/L (40-110); Anion Gap 16 mmol/L (10-20); BUN (Urea Nitrogen) 12 mg/dL (7.0-18.7); Bilirubin, Total 0.3 mg/dL (0.2-1.2); Calc. Creatinine Clearance 0 mL/min (70-130); Calcium 9.1 mg/dL (7.8-10.44); Carbon Dioxide 15 mmol/L (22-29); Chloride 116 mmol/L (98-107); Estimated GFR 61; Globulin 3.1 g/dL (2.4-3.5); Glucose 181 mg/dL (70-105); Magnesium 1.8 mg/dL (1.6-2.6); Potassium 3.6 mmol/L (3.5-5.1); Sodium 143 mmol/L (136-145)
[2022-06-03] MEDS ORDERED: Ketorolac Tromethamine 30 MG/ML VIAL ONE (18:13)
[2022-06-03] MEDS ORDERED: Ondansetron PF 4 MG/2 ML Vial ONE (18:33)
[2022-06-03] MEDS ORDERED: Sodium Chloride 0.9% 2,000 ML ONE (18:33)
[2022-06-03] MEDS ORDERED: HYDROcodone/Acetaminophen 5/325 mg Tablet ONE (18:33)
[2022-06-03 18:34] LABS: #Eosinphils 0.1 thou/uL (0.0-0.7); #Lymphocytes 1.5 thou/uL (1.20-3.40); #Monocytes 0.5 thou/uL (0.11-0.59); #Neutrophils 5.1 thou/uL (1.40-6.50); %Basophils 0.5 % (0.0-1.0); %Eosinophils 0.7 % (0.0-10.0); %Lymphocytes 20.9 % (21.0-51.0); %Monocytes 7.2 % (0.0-10.0); %Neutrophils 70.7 % (42.0-75.0); Hemoglobin 11.4 g/dL (12.0-16.0); Mean Corpuscular HGB CONC 32.3 g/dL (32.0-36.0); Mean Corpuscular Hemoglobin 30.5 pg (27.0-31.0); Mean Corpuscular Volume 94.6 fl (78.0-98.0); Mean Platelet Volume 7.8 fL (7.4-10.4); Platelet Count 276 10x3/uL (130-400); RBC Distribution Width 13.8 % (11.5-14.5); Red Blood Cell (RBC) Count 3.73 mill/uL (4.20-5.40); White Blood Cell (WBC) Count 7.2 10x3/uL (4.8-10.8)
[2022-06-03 18:47] LABS: Alcohol Less than 10 mg/dL (Less than 10); Salicylate Less than 8.0 mg/dL (15.0-30.0)
[2022-06-03 18:53] LABS: Pregnancy Test - Urine (BHCG) Negative (Negative); Pregu Control Background? CLEAR/WHITE (CLR/WHITE); Pregu Control Bar Appear? YES (CONTROL BAR); Specific Gravity 1.025 (1.002-1.036)
[2022-06-03 19:09] LABS: Amphetamine Not Detected (NotDetected); Barbiturates Screen Not Detected (NotDetected); Benzodiazepine Screen Detected (NotDetected); Cocaine Metabolite Screen Not Detected (NotDetected); Medtox Control Line Valid? VALID (VALID); Methadone Not Detected (NotDetected); Methamphetamine Not Detected (NotDetected); Opiate Screen Detected (NotDetected); Oxycodone Screen Not Detected (NotDetected); Phencyclidine (PCP) Not Detected (NotDetected); THC/Cannabinoid Screen Not Detected (NotDetected); Tricyclic Screen Not Detected (NotDetected)
== END 2022-06-03 19:18 | disposition home or self-care (01) ==
LOC: MADERS 16:59
DX: R56.9 Unspecified convulsions (principal); E86.0 Dehydration; J45.909 Unspecified asthma, uncomplicated
CPT/HCPCS: 36415; 70450; 80053; 80306; 80307; 81025; 83735; 85025; 93005; 96372; 96374; 96375; J1885; J2060; J2405; J7050

== ENCOUNTER 2022-06-25 10:20 | Emergency (ER) | payer OTHER ==
[2022-06-25 11:38] LABS: #Basophils 0.1 thou/uL (0.0-0.2); #Eosinphils 0.1 thou/uL (0.0-0.7); #Lymphocytes 1.6 thou/uL (1.20-3.40); #Monocytes 0.4 thou/uL (0.11-0.59); #Neutrophils 4.5 thou/uL (1.40-6.50); %Basophils 1.1 % (0.0-1.0); %Lymphocytes 23.8 % (21.0-51.0); %Neutrophils 68.1 % (42.0-75.0); Hemoglobin 12.1 g/dL (12.0-16.0); Mean Corpuscular HGB CONC 32.1 g/dL (32.0-36.0); Mean Corpuscular Hemoglobin 30.9 pg (27.0-31.0); Mean Corpuscular Volume 96.4 fl (78.0-98.0); Mean Platelet Volume 10.3 fL (7.4-10.4); Platelet Count 269 10x3/uL (130-400); RBC Distribution Width 14.6 % (11.5-14.5); Red Blood Cell (RBC) Count 3.91 mill/uL (4.20-5.40); White Blood Cell (WBC) Count 6.6 10x3/uL (4.8-10.8)
[2022-06-25] MEDS ORDERED: Nitroglycerin 0.4 MG TAB 1 EACH ONE (11:47)
[2022-06-25 11:52] LABS: ALT (SGPT) 20 U/L (8-55); AST (SGOT) 21 U/L (5-34); Albumin 3.8 g/dL (3.5-5.0); Alkaline Phosphatase 133 U/L (40-110); Anion Gap 15 mmol/L (10-20); BUN (Urea Nitrogen) 8 mg/dL (7.0-18.7); Bilirubin, Total 0.2 mg/dL (0.2-1.2); Calc. Creatinine Clearance 0 mL/min (70-130); Calcium 9.1 mg/dL (7.8-10.44); Carbon Dioxide 19 mmol/L (22-29); Chloride 115 mmol/L (98-107); Estimated GFR 74; Globulin 2.7 g/dL (2.4-3.5); Glucose 139 mg/dL (70-105); Magnesium 2.1 mg/dL (1.6-2.6); Potassium 3.7 mmol/L (3.5-5.1); Protein, Total 6.5 g/dL (6.0-8.3); Sodium 145 mmol/L (136-145)
[2022-06-25] MEDS ORDERED: cloNIDine 0.1mg/24 Hour PATCH ONE (12:10)
[2022-06-25] MEDS ORDERED: Ondansetron PF 4 MG/2 ML Vial ONE (12:10)
[2022-06-25] MEDS ORDERED: cloNIDine 0.1 MG TAB ONE (12:10)
[2022-06-25] MEDS ORDERED: Diazepam 5 MG TAB ONE (12:43)
[2022-06-25] MEDS ORDERED: Aspirin 325 MG TAB ONE (12:43)
[2022-06-25] MEDS ORDERED: Morphine 4 MG/ML VIAL ONE (13:52)
[2022-06-25 13:59] LABS: Troponin I Less than 0.010 ng/mL (< 0.028)
[2022-06-25] MEDS ORDERED: Metoprolol Tartrate 5 MG/5 ML VIAL ONE (14:18)
[2022-06-25] MEDS ORDERED: Diazepam 10 MG/2 ML SYRINGE ONE (14:32)
[2022-06-25] MEDS ORDERED: Labetalol HCl 100 MG/20 ML VIAL ONE (14:54)
== END 2022-06-25 16:19 | disposition home or self-care (01) ==
LOC: MADERS 10:20
DX: I10 Essential (primary) hypertension (principal); Z79.899 Other long term (current) drug therapy
CPT/HCPCS: 70450; 71045; 80053; 83735; 83880; 84484; 85025; 93005; 96374; 96375; J2270; J2405; J3360

== ENCOUNTER 2022-08-13 14:29 | Emergency (ER) | payer OTHER ==
[2022-08-13] MEDS ORDERED: Morphine 4 MG/ML VIAL ONE ×3 (15:23→20:15)
[2022-08-13] MEDS ORDERED: Promethazine HCl 25 MG/ML VIAL ONE ×3 (15:23→20:15)
[2022-08-13] MEDS ORDERED: Ondansetron PF 4 MG/2 ML Vial ONE (17:23)
[2022-08-13] MEDS ORDERED: Sodium Chloride 0.9% 1,000 ML ONE ×3 (17:25→20:15)
[2022-08-13 17:34] LABS: #Lymphocytes 0.6 thou/uL (1.20-3.40); #Monocytes 0.4 thou/uL (0.11-0.59); #Neutrophils 11.3 thou/uL (1.40-6.50); %Basophils 0.3 % (0.0-1.0); %Monocytes 3.5 % (0.0-10.0); %Neutrophils 91.2 % (42.0-75.0); Mean Corpuscular HGB CONC 31.4 g/dL (32.0-36.0); Mean Corpuscular Volume 95.5 fl (78.0-98.0); Platelet Count 403 10x3/uL (130-400); RBC Distribution Width 15.9 % (11.5-14.5); White Blood Cell (WBC) Count 12.4 10x3/uL (4.8-10.8)
[2022-08-13 17:39] LABS: BHCG - Serum Negative (NEGATIVE); Pregs Control Background? CLEAR/WHITE (CLR/WHITE); Pregs Control Bar Appear? YES (CONTROL BAR)
[2022-08-13 17:47] LABS: ALT (SGPT) 32 U/L (8-55); AST (SGOT) 19 U/L (5-34); Albumin 4.2 g/dL (3.5-5.0); Alkaline Phosphatase 142 U/L (40-110); Anion Gap 17 mmol/L (10-20); BUN (Urea Nitrogen) 20 mg/dL (7.0-18.7); Bilirubin, Total 0.3 mg/dL (0.2-1.2); Calc. Creatinine Clearance 0 mL/min (70-130); Calcium 9.7 mg/dL (7.8-10.44); Carbon Dioxide 23 mmol/L (22-29); Chloride 108 mmol/L (98-107); Estimated GFR 70; Globulin 3.2 g/dL (2.4-3.5); Glucose 179 mg/dL (70-105); Lipase 8 U/L (8-78); Magnesium 2.1 mg/dL (1.6-2.6); Potassium 3.1 mmol/L (3.5-5.1); Protein, Total 7.4 g/dL (6.0-8.3); Sodium 145 mmol/L (136-145)
[2022-08-13] MEDS ORDERED: Labetalol HCl 100 MG/20 ML VIAL ONE (18:50)
== END 2022-08-13 22:03 | disposition short-term general hospital (02) ==
LOC: MADERS 14:29
DX: K52.9 Noninfective gastroenteritis and colitis, unspecified (principal); E87.6 Hypokalemia; R00.0 Tachycardia, unspecified
CPT/HCPCS: 36556; 74176; 80053; 83605; 83690; 83735; 84703; 85025; 93005; 94760; 96361; 96365; 96372; 96375; J2270; J2405; J2550; J7050

== ENCOUNTER 2022-12-23 21:01 | Emergency (ER) | payer OTHER ==
[2022-12-23] MEDS ORDERED: Sodium Chloride 0.9% 1,000 ML ONE ×2 (21:46→23:35)
[2022-12-23 22:14] LABS: #Basophils 0.1 thou/uL (0.0-0.2); #Lymphocytes 1.7 thou/uL (1.20-3.40); #Monocytes 0.8 thou/uL (0.11-0.59); #Neutrophils 9.4 thou/uL (1.40-6.50); %Basophils 0.5 % (0.0-1.0); %Eosinophils 0.1 % (0.0-10.0); %Lymphocytes 14.5 % (21.0-51.0); %Monocytes 6.6 % (0.0-10.0); %Neutrophils 78.3 % (42.0-75.0); Anisocytosis SLIGHT = 6-15 cells (100X) (0-5/hpf); Hematocrit 41.3 % (36.0-47.0); Hemoglobin 12.4 g/dL (12.0-16.0); MDiff Complete? YES; Mean Corpuscular Hemoglobin 28.3 pg (27.0-31.0); Mean Corpuscular Volume 94.2 fl (78.0-98.0); Mean Platelet Volume 10.1 fL (7.4-10.4); Platelet Adequacy Comment Appears Adequate; Platelet Count 286 10x3/uL (130-400); RBC Distribution Width 16.9 % (11.5-14.5); Red Blood Cell (RBC) Count 4.39 mill/uL (4.20-5.40)
[2022-12-23] MEDS ORDERED: Ondansetron PF 4 MG/2 ML Vial ONE (22:19)
[2022-12-23 22:22] LABS: ALT (SGPT) 18 U/L (8-55); AST (SGOT) 14 U/L (5-34); Albumin 4.2 g/dL (3.5-5.0); Alkaline Phosphatase 151 U/L (40-110); Anion Gap 19 mmol/L (10-20); BUN (Urea Nitrogen) 13 mg/dL (7.0-18.7); Bilirubin, Total 0.2 mg/dL (0.2-1.2); Calc. Creatinine Clearance 0 mL/min (70-130); Calcium 9.2 mg/dL (7.8-10.44); Carbon Dioxide 16 mmol/L (22-29); Chloride 112 mmol/L (98-107); Estimated GFR 64; Globulin 2.8 g/dL (2.4-3.5); Glucose 177 mg/dL (70-105); Lipase 8 U/L (8-78); Potassium 3.6 mmol/L (3.5-5.1); Sodium 143 mmol/L (136-145)
[2022-12-23] MEDS ORDERED: Ketorolac Tromethamine 30 MG/ML VIAL ONE (22:26)
[2022-12-23 22:29] LABS: BHCG - Serum Negative (NEGATIVE); Pregs Control Background? CLEAR/WHITE (CLR/WHITE); Pregs Control Bar Appear? YES (CONTROL BAR)
[2022-12-23] MEDS ORDERED: valACYclovir 500 MG TAB PO SCH (23:30)
[2022-12-23] MEDS ORDERED: Morphine 4 MG/ML VIAL ONE (23:34)
[2022-12-24] MEDS ORDERED: Metoprolol Tartrate 5 MG/5 ML VIAL ONE (00:37)
[2022-12-24 00:52] LABS: Bilirubin Negative (Negative); Blood, Urine Negative (Negative); Glucose, Urine (Dipstick) Negative (Negative); Ketone, Urine Trace mg/dL (Negative); Leukocyte Negative (Negative); Nitrite Positive (Negative); Protein, Urine (Dipstick) Negative (Neg-Trace); Specific Gravity, Urine 1.015 (1.005-1.030); Urobilinogen 0.2 mg/dL (Less than 2)
[2022-12-24 00:56] LABS: Bacteria/HPF 4+ HPF (None Seen); CAUTI Indications for Culture Dysuria,urgency,freq; Clarity Cloudy (Clear); RBC/HPF None Seen HPF (0-3); Squamous Epithelial 0-3 HPF (0-3)
[2022-12-24 00:58] LABS: Urine Culture Reflex No No
[2022-12-24 01:02] LABS: Cocaine Metabolite Screen Not Detected (NotDetected); Methamphetamine Not Detected (NotDetected); Phencyclidine (PCP) Not Detected (NotDetected); THC/Cannabinoid Screen Detected (NotDetected)
[2022-12-24 01:03] LABS: Amphetamine Not Detected (NotDetected); Barbiturates Screen Not Detected (NotDetected); Benzodiazepine Screen Detected (NotDetected); Methadone Not Detected (NotDetected); Opiate Screen Detected (NotDetected); Oxycodone Screen Not Detected (NotDetected); Tricyclic Screen Not Detected (NotDetected)
[2022-12-24] MEDS ORDERED: LevoFLOXacin 500 mg/D5W 100 ML BAG ONE (01:16)
[2022-12-24 01:19] LABS: Acetaminophen Less than 10 mcg/mL (10.0-30.0); Alcohol Less than 10.0 mg/dL (Less than 10); Magnesium 1.8 mg/dL (1.6-2.6); Salicylate Less than 8.0 mg/dL (15.0-30.0); Troponin I Less than 0.010 ng/mL (< 0.028)
[2022-12-24] MEDS ORDERED: Diazepam 5 MG TAB ONE (03:57)
[2022-12-24] MEDS ORDERED: Sodium Chloride 0.9% 1,000 ML ONE (05:40)
[2022-12-24] MEDS ORDERED: Ondansetron PF 4 MG/2 ML Vial ONE (05:40)
[2022-12-24] MEDS ORDERED: Morphine 4 MG/ML VIAL ONE (06:01)
== END 2022-12-24 07:03 | disposition short-term general hospital (02) ==
LOC: MADERS 21:01
DX: A41.9 Sepsis, unspecified organism (principal); B02.9 Zoster without complications; N39.0 Urinary tract infection, site not specified; J45.909 Unspecified asthma, uncomplicated; Z79.899 Other long term (current) drug therapy; Z86.711 Personal history of pulmonary embolism
CPT/HCPCS: 36415; 71045; 80053; 80306; 80307; 81001; 83605; 83690; 83735; 83880; 84484; 84703; 85025; 87040; 87077; 87086; 87186; 93005; 96361; 96365; 96375; 96376; J1885; J1956; J2270; J2405; J7050

== ENCOUNTER 2023-01-19 06:50 | Emergency (ER) | payer OTHER ==
[2023-01-19] MEDS ORDERED: Lactated Ringer's 1,000 ML ONE (07:14)
[2023-01-19] MEDS ORDERED: levETIRAcetam 500 MG/5 ML VIAL ONE (07:14)
[2023-01-19] MEDS ORDERED: Promethazine HCl 25 MG/ML VIAL ONE (07:14)
[2023-01-19] MEDS ORDERED: Morphine 4 MG/ML VIAL ONE ×2 (07:14→11:07)
[2023-01-19] MEDS ORDERED: Lorazepam 2 MG/ML VIAL ONE ×4 (07:25→12:03)
[2023-01-19] MEDS ORDERED: Lidocaine 2% 20 ml MDV ONE (08:17)
[2023-01-19] MEDS ORDERED: Iopamidol 370 76% 100 ML VIAL ONE (08:36)
[2023-01-19] MEDS ORDERED: Succinylcholine 200 MG/10 ml SYRINGE FS ONE (09:14)
[2023-01-19] MEDS ORDERED: Rocuronium Bromide 10 MG/ML (10ML VIAL) ONE (09:14)
[2023-01-19] MEDS ORDERED: Sodium Chloride 0.9% 100 ML BAG ONE (09:14)
[2023-01-19 09:23] LABS: #Basophils 0.1 thou/uL (0.0-0.2); #Lymphocytes 0.8 thou/uL (1.20-3.40); #Monocytes 0.5 thou/uL (0.11-0.59); #Neutrophils 8.4 thou/uL (1.40-6.50); %Basophils 0.6 % (0.0-1.0); %Monocytes 4.9 % (0.0-10.0); %Neutrophils 86.4 % (42.0-75.0); Hematocrit 34.7 % (36.0-47.0); Hemoglobin 10.8 g/dL (12.0-16.0); Mean Corpuscular HGB CONC 31.2 g/dL (32.0-36.0); Mean Corpuscular Hemoglobin 28.7 pg (27.0-31.0); Mean Corpuscular Volume 92.1 fl (78.0-98.0); Mean Platelet Volume 10.3 fL (7.4-10.4); Platelet Count 286 10x3/uL (130-400); RBC Distribution Width 16.7 % (11.5-14.5); Red Blood Cell (RBC) Count 3.77 mill/uL (4.20-5.40); White Blood Cell (WBC) Count 9.7 10x3/uL (4.8-10.8)
[2023-01-19 09:37] LABS: BHCG - Serum Negative (NEGATIVE); Pregs Control Background? CLEAR/WHITE (CLR/WHITE); Pregs Control Bar Appear? YES (CONTROL BAR)
[2023-01-19 09:38] LABS: ALT (SGPT) 30 U/L (8-55); AST (SGOT) 26 U/L (5-34); Albumin 3.9 g/dL (3.5-5.0); Alkaline Phosphatase 145 U/L (40-110); Anion Gap 16 mmol/L (10-20); BUN (Urea Nitrogen) 10 mg/dL (7.0-18.7); Bilirubin, Total 0.3 mg/dL (0.2-1.2); Calc. Creatinine Clearance 0 mL/min (70-130); Calcium 9.1 mg/dL (7.8-10.44); Carbon Dioxide 23 mmol/L (22-29); Chloride 112 mmol/L (98-107); Estimated GFR 76; Globulin 2.9 g/dL (2.4-3.5); Glucose 130 mg/dL (70-105); Lipase 27 U/L (8-78); Potassium 3.2 mmol/L (3.5-5.1); Protein, Total 6.8 g/dL (6.0-8.3); Sodium 148 mmol/L (136-145); Troponin I Less than 0.010 ng/mL (< 0.028)
[2023-01-19 09:39] LABS: Prothrombin Time 13.4 sec (12.0-14.7)
[2023-01-19 09:40] LABS: PTT 22.1 sec (22.9-36.1)
[2023-01-19] MEDS ORDERED: methylPREDNISolone Sod Succ/PF 125 MG/2 ML VIAL ONE (09:55)
[2023-01-19] MEDS ORDERED: Ipratropium/Albuterol 3 ML NEB ONE ×2 (09:55→12:08)
[2023-01-19] MEDS ORDERED: Sodium Chloride 0.9% 1,000 ML ONE (10:05)
[2023-01-19] MEDS ORDERED: Ondansetron PF 4 MG/2 ML Vial ONE (10:06)
[2023-01-19] MEDS ORDERED: Piperacillin/Tazobactam 3.375 GM VIAL ONE (10:41)
[2023-01-19] MEDS ORDERED: LevoFLOXacin 750 mg/D5W 150 ml Premix Bag ONE (10:41)
[2023-01-19] MEDS ORDERED: dilTIAZem 25 MG/5 ML VIAL ONE (10:58)
[2023-01-19] MEDS ORDERED: Potassium Chloride 20 MEQ TAB ONE (11:21)
[2023-01-19] MEDS ORDERED: Ketamine 50 MG/ML (10ML VIAL) ONE (11:46)
[2023-01-19] MEDS ORDERED: dilTIAZem 125 MG/25 ML SDV ONE (12:02)
[2023-01-19] MEDS ORDERED: Midazolam HCl 2 mg/2 ml Vial ONE (12:25)
== END 2023-01-19 12:32 | disposition short-term general hospital (02) ==
LOC: MADERS 06:50
DX: G40.901 Epilepsy, unspecified, not intractable, with status epilepticus (principal); J45.902 Unspecified asthma with status asthmaticus; E86.0 Dehydration; E87.6 Hypokalemia; Z20.822 Contact with and (suspected) exposure to COVID-19; Z79.899 Other long term (current) drug therapy
CPT/HCPCS: 31500; 36556; 70450; 71045; 71260; 72125; 74177; 80053; 83605; 83690; 83735; 83880; 84484; 84703; 85025; 85610; 85730; 87040; 87635; 87804; 93005; 94760; 96361; 96365; 96366; 96368; 96374; 96375; 96376; J1953; J1956; J2060; J2250; J2270; J2405; J2543; J2550; J2930; J3490; J7050; J7120; J7620; Q9967

== ENCOUNTER 2023-04-19 19:17 | Emergency (ER) | payer OTHER, SELFPAY ==
[2023-04-19] MEDS ORDERED: Prochlorperazine 10 MG/2 ML VIAL ONE (20:16)
[2023-04-19] MEDS ORDERED: Nitroglycerin 0.4 MG TAB 1 EACH ONE (20:16)
[2023-04-19] MEDS ORDERED: Morphine 4 MG/ML VIAL ONE (20:16)
[2023-04-19] MEDS ORDERED: Aspirin Chewable 81 MG TAB ONE (20:17)
[2023-04-19] MEDS ORDERED: levETIRAcetam 500 MG (5 mL) VIAL ONE ×2 (20:36→20:54)
[2023-04-19] MEDS ORDERED: Ipratropium/Albuterol 3 ML NEB ONE (20:36)
[2023-04-19] MEDS ORDERED: Lactated Ringer's 1,000 ML ONE ×2 (20:37→23:15)
[2023-04-19] MEDS ORDERED: Acetaminophen 325 MG TAB ONE (20:38)
[2023-04-19] MEDS ORDERED: Sodium Chloride 0.9% 100 ML ONE (20:38)
[2023-04-19 20:45] LABS: SARS-CoV-2 NAA Rapid Test Not Detected (NotDetected)
[2023-04-19 20:50] LABS: Prothrombin Time 13.3 sec (12.0-14.7)
[2023-04-19 20:51] LABS: PTT 26.3 sec (22.9-36.1)
[2023-04-19 20:53] LABS: Hematocrit 32.3 % (36.0-47.0); Hemoglobin 9.7 g/dL (12.0-16.0); Mean Corpuscular Hemoglobin 26.6 pg (27.0-31.0); Mean Corpuscular Volume 88.7 fl (78.0-98.0); Mean Platelet Volume 8.5 fL (7.4-10.4); Platelet Count 295 10x3/uL (130-400); Red Blood Cell (RBC) Count 3.65 mill/uL (4.20-5.40); White Blood Cell (WBC) Count 7.3 10x3/uL (4.8-10.8)
[2023-04-19 21:02] LABS: ALT (SGPT) 21 U/L (8-55); AST (SGOT) 24 U/L (5-34); Albumin 3.9 g/dL (3.5-5.0); Alkaline Phosphatase 140 U/L (40-110); Anion Gap 17 mmol/L (10-20); BUN (Urea Nitrogen) 7 mg/dL (7.0-18.7); Bilirubin, Total 0.3 mg/dL (0.2-1.2); Calc. Creatinine Clearance 0 mL/min (70-130); Calcium 9.3 mg/dL (7.8-10.44); Carbon Dioxide 24 mmol/L (22-29); Chloride 106 mmol/L (98-107); Estimated GFR 84; Globulin 2.7 g/dL (2.4-3.5); Glucose 133 mg/dL (70-105); Lipase 7 U/L (8-78); Protein, Total 6.6 g/dL (6.0-8.3); Sodium 143 mmol/L (136-145); Troponin I Less than 0.010 ng/mL (< 0.028)
[2023-04-19 21:21] LABS: #Basophils 0.1 thou/uL (0.0-0.2); #Eosinphils 0.1 thou/uL (0.0-0.7); #Lymphocytes 1.2 thou/uL (1.20-3.40); #Monocytes 0.5 thou/uL (0.11-0.59); #Neutrophils 5.4 thou/uL (1.40-6.50); %Basophils 1.1 % (0.0-1.0); %Eosinophils 0.7 % (0.0-10.0); %Lymphocytes 16.8 % (21.0-51.0); %Monocytes 6.9 % (0.0-10.0); %Neutrophils 74.5 % (42.0-75.0); Hypochromia MODERATE=16-30 cells (100X) (0-5/hpf); MDiff Complete? YES; Microcytosis SLIGHT = 6-15 cells (100X) (0-5/hpf); Platelet Adequacy Comment Appears Adequate
[2023-04-19 23:29] LABS: Troponin I Less than 0.010 ng/mL (< 0.028)
[2023-04-20 00:15] LABS: Bilirubin Negative (Negative); Blood, Urine Negative (Negative); Clarity Clear (Clear); Glucose, Urine (Dipstick) Negative (Negative); Ketone, Urine Negative (Negative); Leukocyte Negative (Negative); Nitrite Negative (Negative); Protein, Urine (Dipstick) Negative (Neg-Trace); Urobilinogen 0.2 mg/dL (Less than 2)
[2023-04-20 00:22] LABS: Bacteria/HPF None Seen HPF (None Seen); CAUTI Indications for Culture Pelvic or flank pain; RBC/HPF 0-3 HPF (0-3); Squamous Epithelial 0-3 HPF (0-3); WBC/HPF 0-3 HPF (0-3)
[2023-04-20 00:23] LABS: Urine Culture Reflex No No
== END 2023-04-20 00:35 | disposition home or self-care (01) ==
LOC: MADERS 19:17
DX: D64.9 Anemia, unspecified (principal); R11.2 Nausea with vomiting, unspecified; R50.9 Fever, unspecified; J45.909 Unspecified asthma, uncomplicated; I25.2 Old myocardial infarction; Z79.01 Long term (current) use of anticoagulants; Z79.51 Long term (current) use of inhaled steroids
CPT/HCPCS: 71045; 80053; 81001; 83605; 83690; 83735; 84484; 85025; 85610; 85730; 87040; 93005; 94760; 96361; 96365; 96372; J0780; J1953; J2270; J3490; J7120; J7620

== ENCOUNTER 2023-05-13 10:35 | Emergency (ER) | payer SELFPAY ==
[2023-05-13] MEDS ORDERED: Sodium Chloride 0.9% 1,000 ML ONE (10:43)
[2023-05-13] MEDS ORDERED: Lidocaine 1% PF 5 ML VIAL ONE (10:43)
[2023-05-13] MEDS ORDERED: Lorazepam 2 MG/ML VIAL ONE (10:56)
[2023-05-13 12:24] LABS: #Basophils 0.1 thou/uL (0.0-0.2); #Lymphocytes 0.8 thou/uL (1.20-3.40); #Monocytes 0.8 thou/uL (0.11-0.59); #Neutrophils 13.8 thou/uL (1.40-6.50); %Basophils 0.5 % (0.0-1.0); %Lymphocytes 4.9 % (21.0-51.0); %Monocytes 5.4 % (0.0-10.0); %Neutrophils 89.1 % (42.0-75.0); Anisocytosis SLIGHT = 6-15 cells (100X) (0-5/hpf); Hemoglobin 9.6 g/dL (12.0-16.0); Hypochromia SLIGHT = 6-15 cells (100X) (0-5/hpf); MDiff Complete? YES; Mean Corpuscular HGB CONC 28.9 g/dL (32.0-36.0); Mean Corpuscular Hemoglobin 25.6 pg (27.0-31.0); Mean Corpuscular Volume 88.6 fl (78.0-98.0); Platelet Adequacy Comment Appears Adequate; Platelet Count 237 10x3/uL (130-400); Red Blood Cell (RBC) Count 3.73 mill/uL (4.20-5.40); White Blood Cell (WBC) Count 15.5 10x3/uL (4.8-10.8)
[2023-05-13 12:25] LABS: BHCG - Serum Negative (NEGATIVE); Pregs Control Background? CLEAR/WHITE (CLR/WHITE); Pregs Control Bar Appear? YES (CONTROL BAR)
[2023-05-13] MEDS ORDERED: Ondansetron PF 4 MG/2 ML Vial ONE (12:31)
[2023-05-13] MEDS ORDERED: Morphine 4 MG/ML VIAL ONE (12:31)
[2023-05-13 12:33] LABS: ALT (SGPT) 23 U/L (8-55); AST (SGOT) 15 U/L (5-34); Albumin 4.2 g/dL (3.5-5.0); Alkaline Phosphatase 134 U/L (40-110); Anion Gap 18 mmol/L (10-20); BUN (Urea Nitrogen) 9 mg/dL (7.0-18.7); Bilirubin, Total 0.7 mg/dL (0.2-1.2); Calc. Creatinine Clearance 0 mL/min (70-130); Calcium 8.8 mg/dL (7.8-10.44); Carbon Dioxide 15 mmol/L (22-29); Chloride 116 mmol/L (98-107); Estimated GFR 80; Glucose 193 mg/dL (70-105); Magnesium 1.7 mg/dL (1.6-2.6); Potassium 2.7 mmol/L (3.5-5.1); Protein, Total 7.2 g/dL (6.0-8.3); Sodium 146 mmol/L (136-145)
[2023-05-13] MEDS ORDERED: Potassium Chloride 20 MEQ TAB ONE (12:54)
[2023-05-13 13:37] LABS: Acetaminophen Less than 10 mcg/mL (10.0-30.0); Alcohol Less than 10.0 mg/dL (Less than 10); Lipase 28 U/L (8-78); Salicylate Less than 8.0 mg/dL (15.0-30.0)
[2023-05-13 13:42] LABS: Bicarbonate (HCO3v) 15.6 mmol/L (22.0-28.0); CO2 Tension (PvCO2) 29.1 mmHg (42.0-51.0); Calcium, Ionized 1.07 mmol/L (1.15-1.33); Chloride 118 mmol/L (98-107); Hemoglobin - Calc 11.3 g/dL (12.0-16.0); Potassium 2.5 mmol/L (3.5-5.1); Sodium 148 mmol/L (138-145); T. Carbon Dioxide 16.5 mmol/L (22.0-28.0); vO2 Saturation-calc 94.8 % (60.0-85.0)
[2023-05-13] MEDS ORDERED: Diazepam 10 MG/2 ML SYRINGE ONE (13:55)
[2023-05-13] MEDS ORDERED: Lidocaine 2% PF 100 mg/5 ml Syringe ONE (15:20)
[2023-05-13] MEDS ORDERED: Promethazine HCl 25 MG SUPP ONE (15:57)
[2023-05-13] MEDS ORDERED: Ketorolac Tromethamine 30 MG (1 mL) VIAL ONE ×2 (16:49→18:53)
[2023-05-13] MEDS ORDERED: Metoprolol Tartrate 5 MG (5 mL) VIAL ONE (17:45)
[2023-05-13] MEDS ORDERED: LevoFLOXacin 750 mg/D5W 150 ml Premix Bag ONE (18:53)
== END 2023-05-13 19:45 | disposition short-term general hospital (02) ==
LOC: MADERS 10:35
DX: E87.8 Other disorders of electrolyte and fluid balance, not elsewhere classified (principal); E87.6 Hypokalemia; R52 Pain, unspecified; J45.909 Unspecified asthma, uncomplicated
CPT/HCPCS: 36415; 80053; 80307; 82330; 82550; 82803; 83605; 83690; 83735; 83880; 84703; 85025; 87040; 93005; 96361; 96374; 96375; J1885; J1956; J2001; J2060; J2270; J2405; J3360; J7050

== ENCOUNTER 2023-11-20 09:15 | Emergency (ER) | payer OTHER ==
[2023-11-20] MEDS ORDERED: Lidocaine 1% (PF) 30 ML VIAL ONE (11:16)
[2023-11-20] MEDS ORDERED: Ondansetron ODT 4 MG TAB ONE (12:13)
[2023-11-20] MEDS ORDERED: Lorazepam 2 MG/ML VIAL ONE (13:21)
[2023-11-20] MEDS ORDERED: Promethazine HCl 25 MG/ML VIAL ONE (13:22)
== END 2023-11-20 14:09 | disposition short-term general hospital (02) ==
LOC: MADERS 09:15
DX: R56.9 Unspecified convulsions (principal); R00.0 Tachycardia, unspecified; R11.10 Vomiting, unspecified
CPT/HCPCS: 96372; 99285; J2001; J2060; J2550; Q0162

== ENCOUNTER 2024-06-17 18:30 | Emergency (ER) | payer OTHER ==
[2024-06-17] MEDS ORDERED: Morphine 4 MG/ML VIAL ONE (19:42)
[2024-06-17] MEDS ORDERED: Lactated Ringer's 1,000 ML ONE (19:42)
[2024-06-17] MEDS ORDERED: Ondansetron PF 4 MG/2 ML Vial ONE ×3 (19:42→23:01)
[2024-06-17 19:56] LABS: #Basophils 0.1 thou/uL (0.0-0.2); #Lymphocytes 1.1 thou/uL (1.20-3.40); #Monocytes 0.7 thou/uL (0.11-0.59); #Neutrophils 13.5 thou/uL (1.40-6.50); %Basophils 0.3 % (0.0-1.0); %Lymphocytes 6.9 % (21.0-51.0); %Monocytes 4.5 % (0.0-10.0); %Neutrophils 88.3 % (42.0-75.0); Hematocrit 29.7 % (36.0-47.0); Hemoglobin 8.9 g/dL (12.0-16.0); MDiff Complete? YES; Mean Corpuscular HGB CONC 30.1 g/dL (32.0-36.0); Mean Corpuscular Hemoglobin 24.8 pg (27.0-31.0); Mean Corpuscular Volume 82.3 fl (78.0-98.0); Mean Platelet Volume 7.3 fL (7.4-10.4); Microcytosis SLIGHT = 6-15 cells (100X) (0-5/hpf); Platelet Count 433 10x3/uL (130-400); Poikilocytosis SLIGHT = 6-15 cells (100X) (0-5/hpf); RBC Distribution Width 17.6 % (11.5-14.5); Red Blood Cell (RBC) Count 3.61 mill/uL (4.20-5.40); Tear Drops SLIGHT = 2-5 cells (100X) (0-1/hpf); White Blood Cell (WBC) Count 15.3 10x3/uL (4.8-10.8)
[2024-06-17 20:03] LABS: ALT (SGPT) 18 U/L (Less than 34); AST (SGOT) 31 U/L (11-34); Albumin 3.7 g/dL (3.1-4.5); Alkaline Phosphatase 119 U/L (40-110); Anion Gap 18 mmol/L (10-20); BUN (Urea Nitrogen) 12 mg/dL (7.0-18.7); Bilirubin, Total 0.2 mg/dL (0.3-1.2); Calc. Creatinine Clearance 0 mL/min (70-130); Calcium 8.9 mg/dL (7.8-10.44); Carbon Dioxide 16 mmol/L (22-29); Chloride 109 mmol/L (98-107); Estimated GFR 86; Globulin 3.6 g/dL (2.4-3.5); Glucose 169 mg/dL (70-105); Lipase 9 U/L (8-78); Magnesium 1.9 mg/dL (1.6-2.6); Protein, Total 7.3 g/dL (6.0-8.3); Sodium 140 mmol/L (136-145)
[2024-06-17] MEDS ORDERED: D5 1/2 NS w/20 mEq KCL 1,000 ML ONE (20:23)
[2024-06-17] MEDS ORDERED: Morphine 2 MG/ML VIAL ONE ×2 (20:26→23:01)
[2024-06-17] MEDS ORDERED: diphenhydrAMINE 50 MG/ML VIAL ONE (21:13)
[2024-06-17] MEDS ORDERED: Pantoprazole 40 MG VIAL ONE (21:14)
[2024-06-17 21:22] LABS: Bilirubin Small (Negative); Blood, Urine Negative (Negative); Clarity Clear (Clear); Glucose, Urine (Dipstick) Negative (Negative); Ketone, Urine 80 mg/dL (Negative); Leukocyte Negative (Negative); Nitrite Negative (Negative); Protein, Urine (Dipstick) Trace mg/dL (Neg-Trace); Specific Gravity, Urine 1.025 (1.005-1.030); Urobilinogen 0.2 mg/dL (Less than 2)
[2024-06-17 21:28] LABS: Bacteria/HPF Rare-Few HPF (None Seen); CAUTI Indications for Culture Pelvic or flank pain; RBC/HPF 0-3 HPF (0-3); Squamous Epithelial 0-3 HPF (0-3); Urine Culture Reflex No No; WBC/HPF 0-3 HPF (0-3)
[2024-06-17 21:43] LABS: Amphetamine Negative (Negative); Barbiturates Screen Negative (Negative); Benzodiazepine Screen PRELIM POSITIVE (Negative); Cocaine Metabolite Screen Negative (Negative); Methadone Negative (Negative); Methamphetamine Negative (Negative); Opiate Screen PRELIM POSITIVE (Negative); Oxycodone Screen Negative (Negative); Phencyclidine (PCP) Negative (Negative); THC/Cannabinoid Screen Negative (Negative); Tricyclic Screen Negative (Negative)
== END 2024-06-17 23:48 | disposition short-term general hospital (02) ==
LOC: MADERS 18:30
DX: K92.0 Hematemesis (principal); R10.84 Generalized abdominal pain; D64.9 Anemia, unspecified; I10 Essential (primary) hypertension; I25.2 Old myocardial infarction
CPT/HCPCS: 51701; 74176; 80053; 80306; 81001; 82271; 83690; 83735; 85025; 96361; 96365; 96366; 96375; 96376; J1200; J2270; J2272; J2405; J2470; J3480; J7120

== ENCOUNTER 2024-11-12 03:47 | Emergency (ER) | payer BC, OTHER ==
[2024-11-12 04:32] LABS: #Basophils 0.1 thou/uL (0.0-0.2); #Eosinophils 0.1 thou/uL (0.0-0.7); #Lymphocytes 1.8 thou/uL (1.20-3.40); #Monocytes 0.5 thou/uL (0.11-0.59); #Neutrophils 4.4 thou/uL (1.40-6.50); %Basophils 1.3 % (0.0-1.0); %Eosinophils 0.9 % (0.0-10.0); %Lymphocytes 26.0 % (21.0-51.0); %Monocytes 6.7 % (0.0-10.0); %Neutrophils 65.2 % (42.0-75.0); Hematocrit 37.3 % (36.0-47.0); Hemoglobin 11.9 g/dL (12.0-16.0); Mean Corpuscular Hemoglobin 31.0 pg (27.0-31.0); Mean Corpuscular Volume 96.7 fl (78.0-98.0); Platelet Count 432 10x3/uL (130-400); Red Blood Cell (RBC) Count 3.86 mill/uL (4.20-5.40); White Blood Cell (WBC) Count 6.8 10x3/uL (4.8-10.8)
[2024-11-12 04:50] LABS: ALT (SGPT) 36 U/L (Less than 34); AST (SGOT) 53 U/L (11-34); Albumin 3.3 g/dL (3.1-4.5); Alkaline Phosphatase 160 U/L (40-110); Anion Gap 21 mmol/L (10-20); BUN (Urea Nitrogen) 11 mg/dL (7.0-18.7); Bilirubin, Total 0.1 mg/dL (0.3-1.2); Calc. Creatinine Clearance 0 mL/min (70-130); Calcium 8.4 mg/dL (7.8-10.44); Carbon Dioxide 13 mmol/L (22-29); Chloride 116 mmol/L (98-107); Globulin 2.7 g/dL (2.4-3.5); Glucose 161 mg/dL (70-105); Potassium 3.1 mmol/L (3.5-5.1); Sodium 147 mmol/L (136-145)
[2024-11-12 04:51] LABS: Troponin I Less than 0.010 ng/mL (< 0.028)
[2024-11-12] MEDS ORDERED: Pantoprazole 40 MG VIAL ONE (04:59)
[2024-11-12 05:48] LABS: Lipase 8 U/L (8-78); Magnesium 1.7 mg/dL (1.6-2.6)
[2024-11-12] MEDS ORDERED: diphenhydrAMINE 50 MG/ML VIAL ONE (05:50)
[2024-11-12 05:51] LABS: Bicarbonate (HCO3v) 17.1 mmol/L (22.0-28.0); CO2 Tension (PvCO2) 33.3 mmHg (42.0-51.0); Calcium, Ionized 1.15 mmol/L (1.15-1.33); Chloride 117 mmol/L (98-107); Hemoglobin - Calc 11.8 g/dL (12.0-16.0); Potassium 2.7 mmol/L (3.5-5.1); Sodium 142 mmol/L (138-145); T. Carbon Dioxide 18.1 mmol/L (22.0-28.0); vO2 Saturation-calc 99.3 % (60.0-85.0)
[2024-11-12] MEDS ORDERED: Potassium Chloride 20 MEQ (100 mL) BAG ONE (06:01)
[2024-11-12] MEDS ORDERED: NS 0.9% w/ 20 MEQ KCL 1,000 ML ONE (06:47)
[2024-11-12] MEDS ORDERED: Droperidol 5 MG/2 ML VIAL ONE (10:55)
[2024-11-12] MEDS ORDERED: Ondansetron PF 4 MG/2 ML Vial ONE (13:34)
== END 2024-11-12 16:17 | disposition short-term general hospital (02) ==
LOC: MADERS 03:47
DX: K92.0 Hematemesis (principal); N17.9 Acute kidney failure, unspecified; E87.6 Hypokalemia; E87.20 Acidosis, unspecified; I10 Essential (primary) hypertension; I25.2 Old myocardial infarction; Z79.899 Other long term (current) drug therapy
CPT/HCPCS: 71045; 74018; 80053; 82010; 82330; 82803; 83605; 83690; 83735; 84484; 85025; 93005; 96361; 96365; 96366; 96367; 96375; 96376; J1200; J1790; J2270; J2405; J2470; J2550; J2919; J3480; J7030; J7120